=== PATIENT | male | born 1955 | race Caucasian/White ===

== ENCOUNTER 2024-10-09 23:57 | Emergency (ER) | payer MEDICARE, BC, SELFPAY ==
[2024-10-10] VITALS (9 sets, daily range): BP systolic 118–176; BP diastolic 78–106; PULSE 100–121; RESP 7–22; TEMP 36.8; O2SAT 93–98; BMI 27.9
--- NOTE | 2024-10-10 00:05 | XR_ITS ---
Examination: AP chest single view Technique: AP portable upright chest single view Exam date and time: November 09, 2024 0021 hrs. Comparison May 31, 2018 Indications: Onset chest pain today. Findings: Normal heart size No lobar pneumonia Possible 15 mm pulmonary nodule right lower lobe laterally Prominent osteopenia Impression: Recommend AP lordotic chest follow-up to exclude 15 mm pulmonary nodule right lower lobe
[2024-10-10] MEDS: FAMOTIDINE INJ 10 MG/ML VIAL 2 ML 40 MG IVP (00:10)
[2024-10-10] MEDS: LIDOCAINE VISCOUS 2% 15 ML UDC PO (00:10)
[2024-10-10] MEDS: MG HYD/AL HYD/SIME (Maalox Reg) SUSP 30 ML UDC PO (00:10)
[2024-10-10] MEDS: ONDANSETRON INJ 2 MG/ML INJ 2 ML 4 MG IV (00:12)
[2024-10-10 00:19] LABS: Basophils # (Auto) 0.1 Thou/mm3 (0.0-0.2); Basophils % (Auto) 1 % (0-2.5); Eosinophils # (Auto) 0.2 Thou/mm3 (0.0-0.5); Eosinophils % (Auto) 2 % (0-10); Hematocrit 38.6 % (41.0-53.0); Hemoglobin 13.4 g/dL (13.5-16.0); Immature Granulocytes % (Auto) 0 % (0-0); Immature Granulocytes Auto 0.04 Thou/mm3 (0.00-0.00); Lymphocytes # (Auto) 1.9 Thou/mm3 (1.0-4.8); Lymphocytes % (Auto) 20 % (10-50); Mean Corpuscular HGB Conc 34.7 g/dl (31.0-37.0); Mean Corpuscular Hemoglobin 32.6 pg (25.0-35.0); Mean Corpuscular Volume 94 fL (80-100); Monocytes # (Auto) 0.6 Thou/mm3 (0.0-0.8); Monocytes % (Auto) 6 % (0-12); Neutrophils # (Auto) 6.7 Thou/mm3 (1.8-7.7); Neutrophils % (Auto) 72 % (37-80); Nucleated Red Blood Cell % 0 /100 WBC (0); Platelet Count 239 Thou/mm3 (140-440); RDW Standard Deviation 46.9 fL (35.1-43.9); Red Blood Count 4.11 Miln/mm3 (4.50-5.90); White Blood Count 9.4 Thou/mm3 (3.8-10.6)
--- NOTE | 2024-10-10 00:40 | PD.EDCHEST ---
ED Chest Pain RME/HPI General Chief Complaint: Chest Pain Stated Complaint: CHEST PAIN Time Seen by Provider: 10/10/24 00:05 Source: patient and EMS Arrival date/time: 10/09/24 23:57 Mode of arrival: EMS Limitations: no limitations RME / HPI RME / HPI narrative: Dr. [facility] Main ED Evaluation: 69-year-old male with a history of hypertension, NIDDM2, gastric sleeve, chronic back pain (buprenorphine, patch, gabapentin, daily ibuprofen) who presents with epigastric ?burning sensation? with nausea starting around 10 PM this evening while he was seated watching television. He reports worsening of the nausea with deep breathing. He denies chest pressure or dieresis. Normal bowel movements without diarrhea or constipation. Related Data Home Medications ?Medication ?Instructions ?Recorded ?Confirmed albuterol sulfate 90 mcg/actuation 2 puff inhalation Q6HR PRN 02/19/17 07/12/23 aerosol inhaler (Proventil HFA) WHEEZING #0 inhalations docusate sodium 100 mg capsule 100 mg PO BID #0 caps 02/19/17 07/12/23 (Colace) gabapentin 300 mg capsule 300 mg PO BID #0 caps 02/19/17 07/12/23 meloxicam 15 mg tablet (Mobic) 15 mg PO HS #0 tabs 02/19/17 07/12/23 metoprolol tartrate 50 mg tablet 50 mg PO HS #0 tabs 02/19/17 07/12/23 montelukast 10 mg tablet 10 mg PO HS #0 tabs 02/19/17 07/12/23 (Singulair) omeprazole 20 mg capsule,delayed 40 mg PO QDAY ##0 02/19/17 07/12/23 release hydrocodone 10 mg-acetaminophen 1 tab PO Q6H PRN Pain 01/28/18 07/12/23 325 mg tablet (Twin Brooks) metformin 1,000 mg tablet 1,000 mg PO BID PRN Hyperglycemia 01/28/18 07/12/23 phentermine 37.5 mg capsule 37.5 mg PO QDAY 01/28/18 07/12/23 buprenorphine 15 mcg/hour weekly 15 mcg topical QWEEK 07/09/23 07/12/23 transdermal patch cyclobenzaprine 10 mg tablet 10 mg PO QDAY 07/09/23 07/12/23 famotidine 40 mg tablet 40 mg PO QDAY 07/09/23 07/12/23 semaglutide 0.25 mg or 0.5 mg (2 2 mg subcut QWEEK 07/09/23 07/12/23 mg/3 mL) subcutaneous pen injector (Ozempic) tiotropium 2.5 mcg-olodaterol 2.5 1 inh inhalation UD 07/09/23 07/12/23 mcg/actuation mist for inhalation (Stiolto Respimat) valsartan 160 mg tablet 320 mg PO QDAY 07/09/23 07/12/23 Previous Rx's ?Medication ?Instructions ?Recorded famotidine 20 mg tablet 20 mg PO BID #20 tabs 10/10/24 Allergies Allergy/AdvReac Type Severity Reaction Status Date / Time Penicillins AdvReac Abdominal Verified 07/12/23 11:52 Pain Review of Systems Review of Systems Systems Reviewed: All systems reviewed, normal except as documented Past Medical History Past Medical History NEUROLOGIC: Positive Neurological Disorders and Head Trauma (as a child); Negative Seizures CARDIAC: Positive Cardiac Disorders, Hypercholesterolemia, Edema (BLE) and Hypertension; Negative Congestive Heart Failure RESPIRATORY: Positive Asthma (use inhaler prn) and Sleep Apnea (Does not have Cpap); Negative Chronic Obstructive Pulmonary Disease (COPD) GASTROINTESTINAL: Positive Gastrointestinal Disorders, Diverticulitis, Ulcer (gastric) and Gastroesophageal Reflux Disease GENITOURINARY: Positive Genitourinary Disorders and Kidney Stones; Negative Renal Disease or Dialysis REPRODUCTIVE: Negative Breast Cancer MUSCULOSKELETAL: Positive Musculoskeletal Disorders (Left shoulder ligament damage post fall, Neuropathy), Arthritis (MILD) and Carpal Tunnel Syndrome (right hand) ENT: Positive Head Trauma (as a child); Negative Cataracts ENDOCRINE: Positive Endocrine Disorders and Diabetes Mellitus Type 2 (CONTROLLED WITH DIET); Negative Diabetes Mellitus Type 1 HEMATOLOGIC: Positive Blood Disorders and Anemia OTHER HISTORY: Negative Autoimmune Disease, Falls, Blood Transfusions, Anesthesia Reactions, Cancer or Breast Cancer Family History FAMILY HISTORY: Positive Family Cardiac Disorders (father had an abnormal aorta) and Family Cancer (Lung CA); Negative Family Psychiatric Problems, Family Respiratory Disorders, Family Gastrointestinal Problems or Family Anesthesia Reaction Surgical History SURGICAL: Positive Nose Surgery, Abdominal Surgery (Umbilical hernia repair x2 with mesh), Gastric Bypass Surgery and Joint Replacement (trigger finger release surgery 05/2023, CERVICAL FUSION); Negative Cardiac Surgery, Endocrine Surgery or Neurologic Surgery Social History SMOKING STATUS: Former smoker ED Exam Narrative Physical exam: GENERAL APPEARANCE: AxOx4, generally well-appearing, no acute distress. HEENT: NC, AT. MMM. EOMI, clear conjunctiva, oropharynx clear. NECK: Supple without lymphadenopathy. No stiffness or restricted ROM. HEART: Normal rate and regular rhythm, normal S1/S1, no m/r/g LUNGS: CTAB, moving air well. No crackles or wheezes are heard. ABDOMEN: Soft, moderate epigastric tenderness, nondistended with good bowel sounds heard. BACK: No midline C/T/L spine pain or deformity, No CVAT, no obvious deformity. EXTREMITIES: Without cyanosis, clubbing or edema. MUSCULOSKELETAL: FROM of all major joints, no chest tenderness NEUROLOGICAL: Grossly nonfocal. Alert and oriented, moving all 4 extremities. CN not formally tested but appear grossly intact. Observed to ambulate with normal gait. Skin: Warm and dry without any rash. General Limitations: Present no limitations Course Course Course Narrative: CXR is ordered for determining etiology of chest pain. 0445: Patient is now asymptomatic and pain-free after the GI cocktail. I discussed the CT findings, including the right lower lobe lung nodule and he says he is already aware of this and is being worked up with Dr. Loja. He will follow up with Dr. Loja about these findings. Reviewed all results, analysis, treatment plan and patient is amenable discharge. Strict return precautions reviewed and patient was discharged stable condition. Quality Measures none Orders Category Date Time Status CT Screening NOW Care 10/10/24 01:08 Active EKG (ED ONLY) *Do not use* NOW Care 10/10/24 00:[address] abdomen pelvis w con Stat Exams 10/10/24 01:08 Taken EKG (ED Only) Stat Exams 10/10/24 00:05 Ordered XR chest 1V Stat Exams 10/10/24 00:05 Taken CBC Stat Lab 10/10/24 00:05 Completed CMP [Comprehensive Metabolic Panel] Stat Lab 10/10/24 00:05 Completed Lipase Stat Lab 10/10/24 00:05 Completed Troponin I Stat Lab 10/10/24 00:05 Completed Troponin I Stat Lab 10/10/24 03:54 Completed Famotidine Inj [Pepcid Inj] Med 10/10/24 00:04 Discontinued 40 mg IVP X1 ONE Lidocaine 2% Viscous [Xylocaine 2% Viscous] Med 10/10/24 00:04 Discontinued 15 ml PO X1 ONE Ondansetron Inj [Zofran Inj] Med 10/10/24 00:04 Discontinued 4 mg IV X1 ONE mg Hyd/Al Hyd/Tiara Susp [Maalox Susp] Med 10/10/24 00:04 Discontinued 30 ml PO X1 ONE Vital Signs Vital signs: Vital Signs Temperature 98.3 F 10/10/24 00:01 Pulse Rate 105 H 10/10/24 00:01 Respiratory Rate 16 10/10/24 00:01 Blood Pressure 176/106 H 10/10/24 00:01 Pulse Oximetry (%) 97 10/10/24 00:01 Oxygen Delivery Method Room Air 10/10/24 00:01 Chest Pain MDM Narrative MDM Narrative:: Scribe Attestation: I, Sharad Melvin, am scribing for and in the presence of Dr. Webster. Provider Notation: Although this document has been carefully reviewed, there may still be some phonetic and other typographical errors. These errors are purely grammatical due to imperfections in the software program and should not be construed in any way to compromise the substance of the patient's medical care during this visit. Patient data External records reviewed:: [facility] previous records and EMS form Clinical information provided by:: patient and EMS Social determinants that could affect healthcare access:: none Patient has the following chronic illnesses:: hypertension, NIDDM2, gastric sleeve, chronic back pain How is presenting disease/condition affected by chronic disease/condition?: uneffected by Evaluation data The following diagnostics were reviewed and interpreted by me:: lab results and radiology exam(s) Lab and/or radiology exams considered but not ordered:: None Interpretation Summary: Chest x-ray, my interpretation, shows no acute cardio, pulmonary findings, no cardiomegaly, but does note cervical spine internal fixation CT scan of the abdomen and pelvis with intravenous and oral contrast (axial sections with sagittal and coronal reformats). October 10, 2024 at 0254 hours Clinical History: Epigastric pain Comparison: No prior study is available for comparison. Findings: Right lower lobe lung nodule, measuring 1.8 cm. The gallbladder, pancreas, spleen and adrenals are unremarkable. Small simple cysts in the bilateral kidneys. Fecal loading. Hypodense lesion in the right liver lobe measures 0.9 cm. No evidence of bowel obstruction. The appendix is within normal limits. There is no mesenteric or retroperitoneal adenopathy. The urinary bladder is unremarkable. There is no free fluid or free air. Degenerative changes of the imaged portions of the spine. No acute fractures. Mild anterolisthesis of L3. Chronic multilevel disc disease. Status post gastric sleeve surgery. Moderate size hiatal hernia. Impression: 1. Right lower lobe lung nodule suspicious for metastasis. 2. Hypodense lesion in the right liver lobe, consider correlation with MRI for characterization. 3. Fecal loading. 4. Moderate size hiatal hernia. Report Electronically Signed By: Alexander Noble 10/10/2024 4:04:57 AM [EST] Medications / Prescriptions Medications or Prescriptions considered but not ordered:: None Medication administrations:: Medication Administration History Discontinued Medications Al Hydrox/Mg Hydrox/Simethicone (Mg Hyd/Al Hyd/Tiara (Maalox Reg) Susp 30 Ml Udc) 30 ml PO X1 ONE Stop: 10/10/24 00:05 Last Admin: 10/10/24 00:10 Dose: 30 ml Documented By: KHANH Famotidine (Famotidine Inj 10 Mg/Ml Vial 2 Ml) 40 mg IVP X1 ONE Stop: 10/10/24 00:05 Last Admin: 10/10/24 00:10 Dose: 40 mg Documented By: KHANH Lidocaine HCl (Lidocaine Viscous 2% 15 Ml Udc) 15 ml PO X1 ONE Stop: 10/10/24 00:05 Last Admin: 10/10/24 00:10 Dose: 15 ml Documented By: KHANH Ondansetron HCl (Ondansetron Inj 2 Mg/Ml Inj 2 Ml) 4 mg IV X1 ONE; Protocol Stop: 10/10/24 00:05 Last Admin: 10/10/24 00:12 Dose: 4 mg Documented By: KHANH As above Consultations Consultation(s) initiated? (list below): No Diagnosis Most likely diagnosis given after review of the tests above:: Gastritis, Chest pain, GERD (gastroesophageal reflux disease), H/O gastric sleeve Admission Indicated Admission indicated?: not indicated Admission Request Was there a request for admission?: No Disposition Plan Disposition Plan: Discharge Discharge Attestation Discharge Attestation: The patient and all family members were given an opportunity to ask questions and understood the discharge instructions. Discharge instructions specifically effects, indications for sooner follow up or return to the emergency department, and the expected course of current diagnosis. Patient condition: Stable Discharge Plan Plan Patient Disposition: HOME (Self Care) Prescriptions/Referrals Prescriptions/Med Rec: New famotidine 20 mg tablet 20 mg PO BID Qty: 20 0RF No Action metoprolol tartrate 50 MG tablet 50 mg PO HS Qty: 0 montelukast [Singulair] 10 MG tablet 10 mg PO HS Qty: 0 meloxicam [Mobic] 15 MG tablet 15 mg PO HS Qty: 0 docusate sodium [Colace] 100 MG capsule 100 mg PO BID Qty: 0 gabapentin 300 MG capsule 300 mg PO BID Qty: 0 omeprazole 20 MG capsule,delayed release(DR/EC) 40 mg PO QDAY Qty: 0 albuterol sulfate [Proventil HFA] 6.7 GM HFA aerosol inhaler 2 puff Inhalation Q6HR PRN (Reason: WHEEZING) Qty: 0 hydrocodone-acetaminophen [Twin Brooks] 10-325 mg Tablet 1 tab PO Q6H PRN (Reason: Pain) Hold Instructions: Resume on 07/13/23. metformin 1,000 mg Tablet 1,000 mg PO BID PRN (Reason: Hyperglycemia) phentermine 37.5 mg Capsule 37.5 mg PO QDAY cyclobenzaprine 10 mg tablet 10 mg PO QDAY Hold Instructions: Resume on 07/13/23. famotidine 40 mg tablet 40 mg PO QDAY valsartan 160 mg tablet 320 mg PO QDAY buprenorphine 15 mcg/hour patch weekly 15 mcg TOPICAL QWEEK Patient Comments: APPLY 1 PATCH TO THE SKIN EVERY 7 DAYS FOR PAIN Rx Instructions: on mondays Stiolto Respimat 2.5-2.5 mcg/actuation mist 1 inh INHALATION UD Rx Instructions: USE INHALATION TREATMENT INSTRUCTED Ozempic 0.25 mg or 0.5 mg (2 mg/3 mL) pen injector 2 mg SUBCUT QWEEK Referrals: Cooper Clemens MD [Primary Care Provider] - In 1 week Problem List Clinical Impression: Gastritis, Chest pain, GERD (gastroesophageal reflux disease), H/O gastric sleeve Patient/Caregiver Discharge Instructions Education Materials: ED Chest Pain, Uncertain Cause, ED GERD (Adult), ED Gastritis (Adult) Additional Instructions: Follow-up with your primary care doctor in 3 to 5 days for recheck. You can return to the emergency department sooner if symptoms worsen or if you notice any new, concerning issues Print Language: Albanian Stand Alone Forms: Grace Award Info., Patient Portal Info Letter
[2024-10-10 00:41] LABS: Alanine Aminotransferase 17 U/L (10-49); Albumin, Serum 4.8 gm/dL (3.4-4.8); Albumin/Globulin Ratio 1.5 (1.2-2.2); Alkaline Phosphatase 103 U/L (46-116); Anion Gap 11 (7-16); Aspartate Amino Transferase 22 U/L (0-34); BUN/Creatinine Ratio 15 Ratio (12-20); Bilirubin,Total 0.6 mg/dL (0.3-1.2); Blood Urea Nitrogen 18 mg/dL (9-23); Calcium 10.7 mg/dL (8.3-10.6); Calcium (Corrected) 10.7 mg/dL (8.5-10.1); Chloride 104 mMol/L (98-107); Creatinine (Component) 1.2 mg/dL (0.6-1.3); Estimated Creatinine Clearance 64.2 mL/min (>60); Globulin 3.3 gm/dL (2.3-3.5); Glucose 144 mg/dL (74-106); Lipase 94 U/L (12-53); Osmolality,Calculated 284 (275-295); Potassium 3.6 mMol/L (3.4-5.1); Sodium 140 mMol/L (136-145); Total Protein 8.1 gm/dL (5.7-8.2); Troponin I < 0.020 ng/mL (0.0-0.045); eGFR > 60 See Note
--- NOTE | 2024-10-10 01:08 | XR_ITS ---
Examination: CT abdomen with intravenous contrast CT pelvis with intravenous contrast 2-D coronal reconstructions 2-D sagittal reconstructions Date and time of exam:October 10, 2024 0245 hrs. Indications: Epigastric pain today, history gastric sleeve 10 years ago, patient states chronic heartburn shortness of breath. CTDI: vol (mGy) 8.59 DLP: (mGycm) 601 Technique: Multiple axial sections of the abdomen and pelvis have been obtained. 64 slice high-resolution scanner used. 3 mm axial sections have been obtained, post intravenous injection 60 cc Isovue-370, 30 cc Gastrografin 2-D sagittal, coronal reconstructions obtained. Low dose protocols were performed. One or more of the following dose reduction techniques were used; automated exposure control, adjustment of the mA and/or KV according to patient size, use of iterative reconstruction technique. Findings: 17 mm pulmonary nodule right lower lobe, not seen on July 12, 2008 9 mm low-density lesion posterior right lobe of the liver No gallstones Spleen not enlarged No pancreatic or adrenal mass Mild bilateral renal parenchymal scar formation with small left renal cyst Abnormal contrast distended duodenum, proximal small bowel for instance axial image 127, measuring up to 3.8 cm Normal appendix No diverticulitis No significant prostatomegaly Advanced degenerative disc disease lower 3 lumbar levels Impression: 17 mm pulmonary nodule right lower lobe, recommend CT chest without contrast to exclude pulmonary nodular metastatic disease Recommend hepatobiliary sonography to assess 9 mm low-density lesion posterior right lobe the liver Abnormal contrast distended duodenum and proximal small bowel, consider ileus, enteritis, clinical correlation advised Normal appendix
--- NOTE | 2024-10-10 04:05 | PRELIM_ITS ---
CT scan of the abdomen and pelvis with intravenous and oral contrast (axial sections with sagittal an d coronal reformats). October 10, 2024 at 0254 hoursClinical History: Epigastric painComparison: No prior study is available for comparison.Findings:Right lower lobe lung nodule, measuring 1.8 cm.The g allbladder, pancreas, spleen and adrenals are unremarkable.Small simple cysts in the bilateral kidney s.Fecal loading.Hypodense lesion in the right liver lobe measures 0.9 cm.No evidence of bowel obstruc tion. The appendix is within normal limits.There is no mesenteric or retroperitoneal adenopathy.The u rinary bladder is unremarkable. There is no free fluid or free air.Degenerative changes of the imaged portions of the spine. No acute fractures. Mild anterolisthesis of L3. Chronic multilevel disc disea se.Status post gastric sleeve surgery.Moderate size hiatal hernia.Impression:1. Right lower lobe lung nodule suspicious for metastasis.2. Hypodense lesion in the right liver lobe, consider correlation w ith MRI for characterization.3. Fecal loading.4. Moderate size hiatal hernia. Report Electronically S igned By: Alexander Noble 10/10/2024 4:04:57 AM [EST]
[2024-10-10 04:20] LABS: Troponin I < 0.020 ng/mL (0.0-0.045)
== END 2024-10-10 04:51 | disposition home or self-care (01) ==
PROVIDERS: Emergency Provider Emergency Medicine; PCP Specialist
DX: K29.70 Gastritis, unspecified, without bleeding (principal); K21.9 Gastro-esophageal reflux disease without esophagitis
CPT/HCPCS: 36415; 71045; 74177; 80053; 83690; 84484; 85025; 93005; 96374; 96375; 99285; A4649; J2405; J3490; Q9963; Q9967; A9270

== ENCOUNTER 2024-12-02 14:40 | Emergency (ER) | payer MEDICARE, SELFPAY ==
[2024-12-02 14:42] VITALS: BMI 28.0
[2024-12-02 15:29] VITALS: BP 99/64; PULSE 111; RESP 20; TEMP 37.2; O2SAT 95
--- NOTE | 2024-12-02 17:16 | EKG_ITS ---
[facility] Test Date: 2024-12-02 Pat Name: JASMIN BARCLAY Department: Room: - Gender: Male [employer]: : 1955 Requested By: Hali Arriola Order Number: [id number] Reading MD: Hali Arriola Measurements Intervals [place] Rate: 117 P: 92 TX: 147 QRS: -71 QRSD: 94 T: 73 QT: 296 QTc: 413 Interpretive Statements SINUS TACHYCARDIA WITH OCCASIONAL SUPRAVENTRICULAR PREMATURE COMPLEXES PATTERN CONSISTENT WITH PULMONARY DISEASE INCOMPLETE RIGHT BUNDLE BRANCH BLOCK [90+ ms QRS DURATION, TERMINAL R IN V1/V2, 40+ ms S IN I/aVL/V4/V5/V6] LEFT ANTERIOR FASCICULAR BLOCK [QRS AXIS <= -45, QR IN I, RS IN II] No previous ECG available for comparison /store/S0/[id number]/[id number].pdf
--- NOTE | 2024-12-02 17:16 | XR_ITS ---
Examination: PA lateral chest 2 views Technique: Upright PA lateral chest 2 views Exam date and time: December 02, 2024 at 1734 hrs. Indications: Shortness of breath today. Findings: Normal heart size Lungs are clear. The osseous structures are intact Impression: No pneumonia or pulmonary edema
--- NOTE | 2024-12-02 17:17 | EDRME_ITS ---
Rapid Medical Screening Exam [facility] Arrival date/time: 12/02/24 14:40 This is a 69-year-old male with complaints of abdominal pain for the past week. Patient also reports cold sweats at night. Patient also complains of shortness of breath but denies chest pain. Patient states that abdominal pain radiates to his back sometimes. Patient has a history of high blood pressure, diabetes. Patient denies fever, nausea, vomiting, diarrhea. I have greeted and performed a focused initial assessment of this patient. Initial appropriate labs ordered at this time. A comprehensive ED assessment and evaluation of the patient and analysis of all test and completion of medical decision making process will be conducted by additional ED provider. Chief Complaint: Abdominal Pain Time Seen by Provider: 12/02/24 17:01 Vital signs: Vital Signs Temperature 99.0 F 12/02/24 15:29 Pulse Rate 111 H 12/02/24 15:29 Respiratory Rate 20 12/02/24 15:29 Blood Pressure 99/64 12/02/24 15:29 Pulse Oximetry (%) 95 12/02/24 15:29 Oxygen Delivery Method Room Air 12/02/24 15:29
[2024-12-02 18:01] LABS: Collection Type, Urine Voided; Squamous Epithelial Cell,Urine 0 /hpf (0-5)
[2024-12-02 18:12] LABS: Basophils # (Auto) 0.1 Thou/mm3 (0.0-0.2); Basophils % (Auto) 0 % (0-2.5); Eosinophils # (Auto) 0.1 Thou/mm3 (0.0-0.5); Eosinophils % (Auto) 1 % (0-10); Hematocrit 35.8 % (41.0-53.0); Hemoglobin 11.7 g/dL (13.5-16.0); Immature Granulocytes % (Auto) 1 % (0-0); Lymphocytes # (Auto) 2.8 Thou/mm3 (1.0-4.8); Lymphocytes % (Auto) 21 % (10-50); Mean Corpuscular HGB Conc 32.7 g/dl (31.0-37.0); Mean Corpuscular Hemoglobin 31.6 pg (25.0-35.0); Mean Corpuscular Volume 97 fL (80-100); Monocytes % (Auto) 8 % (0-12); Neutrophils # (Auto) 9.3 Thou/mm3 (1.8-7.7); Neutrophils % (Auto) 69 % (37-80); Nucleated Red Blood Cell % 0 /100 WBC (0); Platelet Count 422 Thou/mm3 (140-440); RDW Standard Deviation 46.3 fL (35.1-43.9); White Blood Count 13.4 Thou/mm3 (3.8-10.6)
[2024-12-02 18:14] LABS: Bilirubin,Urine Negative (Negative); Blood,Urine Negative (Negative); Clarity,Urine Clear (Clear/Hazy); Color,Urine Lt-Yellow (Lt Yel-Yel); Culture Indicated,Urine Not Indicated; Glucose, Urine Negative (Negative); Hyaline Casts,Urine < 1 /hpf (0-1); Ketones,Urine Negative (Negative); Leukocyte Esterase,Urine Negative (Negative); Nitrite,Urine Negative (Negative); PH,Urine 6.5 (5.0-7.0); Protein,Urine Negative (Neg - Trace); RBC,Urine 2 /hpf (0-3); Specific Gravity,Urine 1.013 (1.001-1.035); Urobilinogen,Urine Negative mg/dL (0.0-1.0); WBC,Urine < 1 /hpf (0-5)
[2024-12-02 18:33] LABS: B-Type Natriuretic Peptide 68 pg/mL (0-100)
[2024-12-02 18:41] LABS: Alanine Aminotransferase 8 U/L (10-49); Albumin, Serum 4.6 gm/dL (3.4-4.8); Albumin/Globulin Ratio 1.1 (1.2-2.2); Alkaline Phosphatase 128 U/L (46-116); Anion Gap 9 (7-16); Aspartate Amino Transferase < 10 U/L (0-34); BUN/Creatinine Ratio 16 Ratio (12-20); Bilirubin,Total 0.4 mg/dL (0.3-1.2); Blood Urea Nitrogen 16 mg/dL (9-23); Calcium 10.2 mg/dL (8.3-10.6); Calcium (Corrected) 10.2 mg/dL (8.5-10.1); Carbon Dioxide 27.1 mMol/L (20.0-31.0); Chloride 100 mMol/L (98-107); Estimated Creatinine Clearance 74.8 mL/min (>60); Globulin 4.3 gm/dL (2.3-3.5); Glucose 115 mg/dL (74-106); Lipase 32 U/L (12-53); Osmolality,Calculated 274 (275-295); Potassium 4.7 mMol/L (3.4-5.1); Sodium 136 mMol/L (136-145); Total Protein 8.9 gm/dL (5.7-8.2); Troponin I < 0.020 ng/mL (0.0-0.045); eGFR > 60 See Note
--- NOTE | 2024-12-02 19:22 | XR_ITS ---
Examination: CT abdomen with intravenous contrast CT pelvis with intravenous contrast 2-D coronal reconstructions 2-D sagittal reconstructions Date and time of exam:December 02, 2024 2143 hrs. Comparison October 10, 2024 Indications: Right-sided abdominal pain beginning one week ago. CTDI: vol (mGy) 10.4 DLP: (mGycm) 640 Technique: Multiple axial sections of the abdomen and pelvis have been obtained. 64 slice high-resolution scanner used. 3 mm axial sections have been obtained, post intravenous injection 60 cc Isovue-370 2-D sagittal, coronal reconstructions obtained. Low dose protocols were performed. One or more of the following dose reduction techniques were used; automated exposure control, adjustment of the mA and/or KV according to patient size, use of iterative reconstruction technique. Findings: 13 mm pulmonary nodule right lower lobe Small liver cysts Distended gallbladder Gastric sutures No splenic or pancreatic mass Normal adrenal glands No hydronephrosis or renal calculi Normal appendix Abundant stool in the transverse colon and rectosigmoid No obstruction No nonspecific colitis or enteritis pattern Urinary bladder intact Prostate calcifications transverse prostate dimension 3.8 cm Prominent osteopenia Advanced degenerative disc disease L3-L4, L4-L5 Impression: Distended gallbladder, recommend gallbladder sonography follow-up No renal or ureteral calculi, no hydronephrosis Normal appendix Fecal loading, no obstruction Negative for nonspecific colitis or enteritis pattern
[2024-12-02 19:36] VITALS: BP 109/78; PULSE 113; RESP 19; TEMP 37; O2SAT 97
--- NOTE | 2024-12-02 22:30 | XR_ITS ---
Examination: Abdomen sonogram, Limited Date and time of exam: December 03, 2024 0114 hrs. Indications: Onset generalized abdominal pain beginning one week ago Technique: Real-time sales scale transabdominal sonographic images of the upper abdomen obtained. Findings: Gallbladder sludge No gallstones Gallbladder wall 0.5 cm Common bile duct 0.7 cm no stones Pancreas obscured by bowel gas Liver 14 cm no liver lesions Normal hepatopedal portal venous oh Patent IVC Impression: Gallbladder sludge Thickened gallbladder wall 0.5 cm, recommend HIDA scan or MRCP follow-up to exclude cholecystitis
--- NOTE | 2024-12-03 03:18 | PRELIM_ITS ---
Right upper quadrant abdominal ultrasound. December 03, 2024 0141 hours Clinical history: 69-year-old with abdominal pain, distended gallbladder on CT Comparison: Reference is made to the prior [facility] CT report dated October 10, 2024Findings:The liver measures 14 cm and demonstrates heterogeneous echotexture. There is a starry teri appearance of the liver. No intrahepatic biliary ductal dilatatio n. The main portal vein is patent and demonstrates hepatopetal flow. The gallbladder is distended breanne suring 9 x 5.1 x 4.8 cm with thickening of the gallbladder wall measuring 5.3 mm. There are low level internal echoes which may represent sludge. No gallbladder calculus or pericholecystic fluid is demo nstrated. Sonographic Whitley sign is negative as per the technologist's note. The common bile duct me asures 6.9 mm. The pancreas is obscured by overlying bowel gas and not visualized. The right kidney m easures 14 cm and is unremarkable. There is no hydronephrosis and the corticomedullary differentiatio n is maintained. The inferior vena cava is unremarkable to the extent visualized. Impression:Heteroge neously increased hepatic echotexture, which may be due to fatty infiltration versus hepatic parenchy mal disease. Recommend clinical/laboratory correlation. Distended gallbladder. Thickened gallbladder wall, which may be due to underlying liver pathology. However,the possibility of acute cholecystitis cannot be excluded. Recommend further evaluation with suggest follow-up with HIDA scan, if clinically indicated. Report Electronically Signed By: Iris Hinton 12/03/2024 3:17:16 AM [EST]
[2024-12-03 04:40] VITALS: BP 133/75; PULSE 97; RESP 16; TEMP 36.6; O2SAT 98
--- NOTE | 2024-12-03 05:14 | PD.EDABDPN ---
ED Abdominal Pain RME/HPI General Chief Complaint: Abdominal Pain Stated complaint: ABD PAIN Time seen by provider: 12/02/24 17:01 Arrival date/time: 12/02/24 14:40 Source: patient Mode of arrival: ambulatory Limitations: no limitations RME / HPI RME / HPI narrative: --- DR. MOORE MAIN ED EVALUATION: 69-year-old male with complaints of abdominal pain for the past week. Patient also reports chills at night, and shortness of breath. Denies chest pain. He notes the abdominal pain radiates to his back. No fever, nausea, vomiting, or diarrhea. Patient reports he thought he had bowel movements, but it did not improve. Patient took lactulose, Dulcolax with no improvement. Pain currently 7 out of 10 History includes high blood pressure, and diabetes. Related Data Home Medications ?Medication ?Instructions ?Recorded ?Confirmed albuterol sulfate 90 mcg/actuation 2 puff inhalation Q6HR PRN 02/19/17 07/12/23 aerosol inhaler (Proventil HFA) WHEEZING #0 inhalations docusate sodium 100 mg capsule 100 mg PO BID #0 caps 02/19/17 07/12/23 (Colace) gabapentin 300 mg capsule 300 mg PO BID #0 caps 02/19/17 07/12/23 meloxicam 15 mg tablet (Mobic) 15 mg PO HS #0 tabs 02/19/17 07/12/23 metoprolol tartrate 50 mg tablet 50 mg PO HS #0 tabs 02/19/17 07/12/23 montelukast 10 mg tablet 10 mg PO HS #0 tabs 02/19/17 07/12/23 (Singulair) omeprazole 20 mg capsule,delayed 40 mg PO QDAY ##0 02/19/17 07/12/23 release hydrocodone 10 mg-acetaminophen 1 tab PO Q6H PRN Pain 01/28/18 07/12/23 325 mg tablet ([place]) metformin 1,000 mg tablet 1,000 mg PO BID PRN Hyperglycemia 01/28/18 07/12/23 phentermine 37.5 mg capsule 37.5 mg PO QDAY 01/28/18 07/12/23 buprenorphine 15 mcg/hour weekly 15 mcg topical QWEEK 07/09/23 07/12/23 transdermal patch cyclobenzaprine 10 mg tablet 10 mg PO QDAY 07/09/23 07/12/23 famotidine 40 mg tablet 40 mg PO QDAY 07/09/23 07/12/23 semaglutide 0.25 mg or 0.5 mg (2 2 mg subcut QWEEK 07/09/23 07/12/23 mg/3 mL) subcutaneous pen injector (Ozempic) tiotropium 2.5 mcg-olodaterol 2.5 1 inh inhalation UD 07/09/23 07/12/23 mcg/actuation mist for inhalation (Stiolto Respimat) valsartan 160 mg tablet 320 mg PO QDAY 07/09/23 07/12/23 Previous Rx's ?Medication ?Instructions ?Recorded famotidine 20 mg tablet 20 mg PO BID #20 tabs 10/10/24 Allergies Allergy/AdvReac Type Severity Reaction Status Date / Time Penicillins AdvReac Abdominal Verified 12/02/24 14:42 Pain Review of Systems Review of Systems Systems Reviewed: All systems reviewed, normal except as documented Past Medical History Past Medical History NEUROLOGIC: Positive Neurological Disorders and Head Trauma (as a child); Negative Seizures CARDIAC: Positive Hypercholesterolemia, Edema (BLE) and Hypertension; Negative Cardiac Disorders or Congestive Heart Failure RESPIRATORY: Positive Asthma and Sleep Apnea (Does not have Cpap); Negative Chronic Obstructive Pulmonary Disease (COPD) GASTROINTESTINAL: Positive Gastrointestinal Disorders, Diverticulitis, Ulcer (gastric) and Gastroesophageal Reflux Disease GENITOURINARY: Positive Genitourinary Disorders and Kidney Stones; Negative Renal Disease or Dialysis REPRODUCTIVE: Negative Breast Cancer MUSCULOSKELETAL: Positive Musculoskeletal Disorders (Left shoulder ligament damage post fall, Neuropathy), Arthritis (MILD) and Carpal Tunnel Syndrome (right hand) ENT: Positive Head Trauma (as a child); Negative Cataracts ENDOCRINE: Positive Endocrine Disorders; Negative Diabetes Mellitus Type 1 or Diabetes Mellitus Type 2 HEMATOLOGIC: Positive Blood Disorders and Anemia; Negative Sickle Cell Disease OTHER HISTORY: Negative Autoimmune Disease, Falls, Blood Transfusions, Anesthesia Reactions, Cancer or Breast Cancer Family History FAMILY HISTORY: Positive Family Cardiac Disorders (father had an abnormal aorta) and Family Cancer (Lung CA); Negative Family Psychiatric Problems, Family Respiratory Disorders, Family Gastrointestinal Problems or Family Anesthesia Reaction Surgical History SURGICAL: Positive Nose Surgery, Abdominal Surgery (Umbilical hernia repair x2 with mesh), Gastric Bypass Surgery and Joint Replacement (trigger finger release surgery 05/2023, CERVICAL FUSION); Negative Cardiac Surgery, Endocrine Surgery or Neurologic Surgery Social History SMOKING STATUS: Former smoker ED Exam General Limitations: Present no limitations General appearance: Present alert and in no apparent distress Head Head exam: Present atraumatic, normocephalic and normal inspection Eye Eye exam: Present normal appearance, PERRL and EOMI ENT ENT exam: Present normal exam, normal oropharynx, TM's normal bilaterally and normal external ear exam Neck Neck exam: Present normal inspection and full ROM Chest Chest inspection: Present normal inspection and symmetric chest wall rise Respiratory Respiratory exam: Present normal lung sounds bilaterally Cardiovascular Cardiovascular exam: Present regular rate, normal rhythm and normal heart sounds Abdominal Exam Abdominal exam: Present normal bowel sounds Extremities Exam Extremities exam: Present normal inspection and full ROM Back Exam Back exam: Present normal inspection and full ROM Neurological Exam Neurological exam: Present alert, oriented X3 and CN II-XII intact Psychiatric Psychiatric exam: Present normal affect and normal mood; Absent depressed Skin Skin exam: Present warm, dry, intact and normal color Course Course Course Narrative: Patient continues to have pain [address] scan with possible constipation however the patient feels that is not secondary to constipation. He is clinically dehydrated with decree skin turgor. Differential includes possible muscle spasm versus constipation however with the pain increased and the patient had been here for 14 hours and not been seen by her prior provider prior to previous to me in which I saw him at the 11-hour naman at this time I want to repeat labs, gave him hydration, consider lactate to make sure that this is not pain out of proportion to exam and consider other causes for his pain. Quality Measures none Orders Category Date Time Status CT Screening NOW Care 12/02/24 19:22 Active EKG (ED ONLY) *Do not use* NOW Care 12/02/24 17:[address] abdomen pelvis w con Stat Exams 12/02/24 19:22 Completed EKG (ED Only) Stat Exams 12/02/24 17:16 Draft US abdomen limited Stat Exams 12/02/24 22:30 Taken XR chest 2V Stat Exams 12/02/24 17:16 Completed BNP [B-Type Natriuretic Peptide] Stat Lab 12/02/24 17:34 Completed CBC Stat Lab 12/02/24 17:34 Completed CBC Stat Lab 12/03/24 05:33 Ordered Comprehensive Metabolic Panel Stat Lab 12/02/24 17:34 Completed Comprehensive Metabolic Panel Stat Lab 12/03/24 05:33 Ordered Lactate (Lactic Acid) Stat Lab 12/03/24 05:33 Ordered Lipase Stat Lab 12/02/24 17:34 Completed Procalcitonin Stat Lab 12/03/24 05:33 Ordered Sed Rate (ESR) Stat Lab 12/03/24 05:33 Ordered Troponin I Stat Lab 12/02/24 17:34 Completed Urinalysis, C/S if Indicated Stat Lab 12/02/24 17:32 Completed Diazepam [Valium] Med 12/03/24 05:38 Discontinued 2.5 mg PO X1 ONE Sodium Chloride 0.9% 1000 ml [Ns] 1,000 ml Med 12/03/24 05:33 Active IV 999 mls/hr Vital Signs Vital signs: Vital Signs Temperature 99.0 F 12/02/24 15:29 Pulse Rate 111 H 12/02/24 15:29 Respiratory Rate 20 12/02/24 15:29 Blood Pressure 99/64 12/02/24 15:29 Pulse Oximetry (%) 95 12/02/24 15:29 Oxygen Delivery Method Room Air 12/02/24 15:29 Abdominal Pain MDM MDM Narrative MDM Narrative:: 0600: Care signed out to [facility] dayshift provider. Past medical, surgical, social and family history reviewed. Vitals and home medications reviewed. Results and treatment plan discussed. They will assume the care of the patient at this time and will follow the patient, pending CT and final disposition. ? Scribe Attestation: ISharad, am scribing for and in the presence of Dr. Mortensen. Provider Notation: Although this document has been carefully reviewed, there may still be some phonetic and other typographical errors. These errors are purely grammatical due to imperfections in the software program and should not be construed in any way to compromise the substance of the patient's medical care during this visit. Patient data External records reviewed:: [facility] previous records Clinical information provided by:: patient Social determinants that could affect healthcare access:: none Patient has the following chronic illnesses:: HTN, DM2 How is presenting disease/condition affected by chronic disease/condition?: uneffected by Evaluation data The following diagnostics were reviewed and interpreted by me:: lab results and radiology exam(s) Lab and/or radiology exams considered but not ordered:: None Interpretation Summary: Right upper quadrant abdominal ultrasound. December 03, 2024 0141 hours Clinical history: 69-year-old with abdominal pain, distended gallbladder on CT Comparison: Reference is made to the prior preliminary CT report dated October 10, 2024 Findings: The liver measures 14 cm and demonstrates heterogeneous echotexture. There is a starry teri appearance of the liver. No intrahepatic biliary ductal dilatation. The main portal vein is patent and demonstrates hepatopetal flow. The gallbladder is distended measuring 9 x 5.1 x 4.8 cm with thickening of the gallbladder wall measuring 5.3 mm. There are low level internal echoes which may represent sludge. No gallbladder calculus or pericholecystic fluid is demonstrated. Sonographic Whitley sign is negative as per the technologist's note. The common bile duct measures 6.9 mm. The pancreas is obscured by overlying bowel gas and not visualized. The right kidney measures 14 cm and is unremarkable. There is no hydronephrosis and the corticomedullary differentiation is maintained. The inferior vena cava is unremarkable to the extent visualized. Impression: Heterogeneously increased hepatic echotexture, which may be due to fatty infiltration versus hepatic parenchymal disease. Recommend clinical/laboratory correlation. Distended gallbladder. Thickened gallbladder wall, which may be due to underlying liver pathology. However, the possibility of acute cholecystitis cannot be excluded. Recommend further evaluation with suggest follow-up with HIDA scan, if clinically indicated. Report Electronically Signed By: Iris Hinton 12/03/2024 3:17:16 AM [EST] Medications / Prescriptions Medications or Prescriptions considered but not ordered:: None Medication administrations:: Medication Administration History Sodium Chloride (Ns) 1,000 mls @ 999 mls/hr IV .Q1H1M ONE Stop: 12/03/24 06:33 Discontinued Medications Diazepam (Diazepam 5 Mg Tablet) 2.5 mg PO X1 ONE Stop: 12/03/24 05:39 As above, if any Consultations Consultation(s) initiated? (list below): No Diagnosis Differential diagnosis abdominal pain: abdominal pain, calculus of kidney, constipation and gastroenteritis (Acalculous acute cholecystitis, gallbladder distention) Most likely diagnosis given after review of the tests above:: See clinical impression below Admission Indicated Admission indicated?: not indicated Explain why admission is indicated or not indicated:: Patient will be signed out to the next provider. Admission Request Was there a request for admission?: No Disposition Plan Disposition Plan: other (specify) (sign-out pending reevaluation, IV fluids, lactate, and reevaluation for possible admission for abdominal pain.) Discharge Plan Plan Disposition Comment: Stable at signout with Prescriptions/Referrals Prescriptions/Med Rec: No Action metoprolol tartrate 50 MG tablet 50 mg PO HS Qty: 0 montelukast [Singulair] 10 MG tablet 10 mg PO HS Qty: 0 meloxicam [Mobic] 15 MG tablet 15 mg PO HS Qty: 0 docusate sodium [Colace] 100 MG capsule 100 mg PO BID Qty: 0 gabapentin 300 MG capsule 300 mg PO BID Qty: 0 omeprazole 20 MG capsule,delayed release(DR/EC) 40 mg PO QDAY Qty: 0 albuterol sulfate [Proventil HFA] 6.7 GM HFA aerosol inhaler 2 puff Inhalation Q6HR PRN (Reason: WHEEZING) Qty: 0 hydrocodone-acetaminophen [[place]] 10-325 mg Tablet 1 tab PO Q6H PRN (Reason: Pain) Hold Instructions: Resume on 07/13/23. metformin 1,000 mg Tablet 1,000 mg PO BID PRN (Reason: Hyperglycemia) phentermine 37.5 mg Capsule 37.5 mg PO QDAY cyclobenzaprine 10 mg tablet 10 mg PO QDAY Hold Instructions: Resume on 07/13/23. famotidine 40 mg tablet 40 mg PO QDAY valsartan 160 mg tablet 320 mg PO QDAY buprenorphine 15 mcg/hour patch weekly 15 mcg TOPICAL QWEEK Patient Comments: APPLY 1 PATCH TO THE SKIN EVERY 7 DAYS FOR PAIN Rx Instructions: on mondays Stiolto Respimat 2.5-2.5 mcg/actuation mist 1 inh INHALATION UD Rx Instructions: USE INHALATION TREATMENT INSTRUCTED Ozempic 0.25 mg or 0.5 mg (2 mg/3 mL) pen injector 2 mg SUBCUT QWEEK famotidine 20 mg tablet 20 mg PO BID Qty: 20 0RF Referrals: Cooper Clemens MD [Primary Care Provider] - In 1 week Problem List Clinical Impression: Abdominal pain Patient/Caregiver Discharge Instructions Print Language: Burundian
[2024-12-03] MEDS: DIAZEPAM 5 MG TABLET 2.5 MG PO (05:53)
[2024-12-03] MEDS: SODIUM CHLORIDE 0.9% 1000 ML 1,000 ML 999 ML IV (05:53)
[2024-12-03 06:11] LABS: Basophils # (Auto) 0.1 Thou/mm3 (0.0-0.2); Basophils % (Auto) 1 % (0-2.5); Eosinophils # (Auto) 0.1 Thou/mm3 (0.0-0.5); Eosinophils % (Auto) 1 % (0-10); Hematocrit 30.8 % (41.0-53.0); Hemoglobin 10.5 g/dL (13.5-16.0); Immature Granulocytes % (Auto) 1 % (0-0); Immature Granulocytes Auto 0.08 Thou/mm3 (0.00-0.00); Lymphocytes # (Auto) 2.3 Thou/mm3 (1.0-4.8); Lymphocytes % (Auto) 25 % (10-50); Mean Corpuscular HGB Conc 34.1 g/dl (31.0-37.0); Mean Corpuscular Hemoglobin 32.2 pg (25.0-35.0); Mean Corpuscular Volume 95 fL (80-100); Monocytes # (Auto) 0.6 Thou/mm3 (0.0-0.8); Monocytes % (Auto) 6 % (0-12); Neutrophils # (Auto) 6.2 Thou/mm3 (1.8-7.7); Neutrophils % (Auto) 67 % (37-80); Nucleated Red Blood Cell % 0 /100 WBC (0); Platelet Count 345 Thou/mm3 (140-440); RDW Standard Deviation 45.2 fL (35.1-43.9); Red Blood Count 3.26 Miln/mm3 (4.50-5.90); White Blood Count 9.3 Thou/mm3 (3.8-10.6)
[2024-12-03 06:30] LABS: Sed Rate (ESR) 72 mm/hr (0-20)
--- NOTE | 2024-12-03 06:32 | EDNOTE_ITS ---
Emergency Room Addendum <Briana Vidal - Last Filed: 12/03/24 10:28> Addendum Narrative: 0600: Care assumed from Dr. Molina, the previous shift emergency physician. Past medical, surgical, social and family history reviewed. Vitals and home medications reviewed. I will assume the care of the patient at this time. Please refer to the emergency department record for history and examination from initial visit.? Physical exam by me shows patient under no acute distress at this time. <Maurizio Aguilar MD - Last Filed: 12/03/24 10:45> Addendum Narrative: 0600: Care assumed from Dr. Molina, the previous shift emergency physician. Past medical, surgical, social and family history reviewed. Vitals and home medications reviewed. I will assume the care of the patient at this time. The patient was signed out to me from Dr. Polk at 6:00 this morning pending repeated CBC and CMP. Repeat his CBC is negative. Repeat his CMP is negative. Other results including CT that showing constipation. Ultrasound gallbladder showing gallbladder sludge. Chest x-ray interpreted by me: Clear lungs. Heart normal. Mediastinum normal. Normal bones. No pneumothorax. No CHF. There appeared to be a small nodule in the right lower lateral lung base. It has been there on the CT chest in 2022 at least. Please refer to the emergency department record for history and examination from initial visit.? Physical exam by me shows patient under no acute distress at this time. Repeated abdominal exam is benign soft nontender nondistended no rebound or guarding. No surgical abdomen. And the patient does want to go home. He is taking [place] chronically for chronic back pain. Diagnosis: Abdominal pain Constipation. Gallbladder sludge Condition: Stable and improved to go home DC instruction: Liquid diet for 24 hours. Milk magnesia for constipation. See your doctor for recheck in 72 hours. Return the nearest emergency department if condition worsens or if new symptoms develop especially fever. Of note, there is a small nodule in the right lung base please follow-up with your medical doctor.
[2024-12-03 06:52] LABS: Alanine Aminotransferase < 7 U/L (10-49); Albumin, Serum 4.1 gm/dL (3.4-4.8); Albumin/Globulin Ratio 1.1 (1.2-2.2); Alkaline Phosphatase 110 U/L (46-116); Anion Gap 9 (7-16); Aspartate Amino Transferase 13 U/L (0-34); BUN/Creatinine Ratio 18 Ratio (12-20); Bilirubin,Total 0.4 mg/dL (0.3-1.2); Blood Urea Nitrogen 18 mg/dL (9-23); Calcium 9.7 mg/dL (8.3-10.6); Calcium (Corrected) 9.7 mg/dL (8.5-10.1); Carbon Dioxide 23.8 mMol/L (20.0-31.0); Chloride 102 mMol/L (98-107); Estimated Creatinine Clearance 74.8 mL/min (>60); Globulin 3.9 gm/dL (2.3-3.5); Glucose 107 mg/dL (74-106); Osmolality,Calculated 272 (275-295); Potassium 4.2 mMol/L (3.4-5.1); Procalcitonin 0.18 ng/ml (0.0-0.49); Sodium 135 mMol/L (136-145); eGFR > 60 See Note
[2024-12-03 06:54] VITALS: BP 103/77; PULSE 82; RESP 17; O2SAT 94
[2024-12-03 08:19] VITALS: BP 137/68; PULSE 89; RESP 17; TEMP 36.4; O2SAT 99
[2024-12-03 10:00] VITALS: BP 144/74; PULSE 88; RESP 16; TEMP 36.6; O2SAT 95
== END 2024-12-03 10:50 | disposition home or self-care (01) ==
PROVIDERS: Emergency Medicine; Nurse Practitioner Family; Emergency Provider Emergency Medicine; PCP Specialist
DX: K59.00 Constipation, unspecified (principal); K82.8 Other specified diseases of gallbladder
CPT/HCPCS: 36415; 71046; 74177; 76705; 80053; 81001; 83605; 83690; 83880; 84145; 84484; 85025; 85652; 93005; 96360; 99285; A4649; J7030; Q9967; A9270

== ENCOUNTER 2024-12-05 03:37 | Emergency (ER) | payer MEDICARE, BC, SELFPAY ==
[2024-12-05] VITALS (10 sets, daily range): BP systolic 137–170; BP diastolic 77–97; PULSE 87–114; RESP 16–21; TEMP 36.3–39; O2SAT 92–100; BMI 28.8; BMI 28.0
--- NOTE | 2024-12-05 | XR_ITS ---
Examination: MRI lumbar spine, without intravenous contrast. MRI lumbar spine , with intravenous contrast. Exam date and time: December 05, 2024 1330 hours INDICATIONS: Diffuse abdominal pain nausea vomiting constipation with fever and low back pain this week, CT scan lumbar spine December 05, 2024 is L4-L5 Technique: Multiple axial, sagittal and coronal images of the lumbar spine have been obtained with the Siemens high-resolution 1.5 Emily MRI scanner. Images obtained included T2 weighted fat suppressed sagittal sections, TR 3500, TE 46, T2 weighted coronal fat suppressed images, TR 3050, TE 84, T2-weighted transverse fat suppressed images, TR 30-60, TE 63, proton density transverse images, TR 4720, TE 46, and T1 weighted coronal images, TR 560, TE 13. Axial, sagittal and coronal images are obtained post intravenous injection 60 cc gadolinium. Findings: Grade 1 anterolisthesis L4 on L5 Transitional S1 vertebral body Advanced disc narrowing L4-L5, L5-S1 Reactive bony endplate change L4-L5 No lumbar fracture Postcontrast images demonstrate no osteoarthritis or discitis pattern L5-S1 partially extruded 7 mm central right paracentral disc displacing the right S1 nerve root The disc bulges extends to the foraminal regions with mild bilateral L5 ganglionic compression L4-L5 moderate to severe overall spinal stenosis, 6 mm left 7 mm right foraminal disc bulges with severe right L4 ganglionic compression More cephalad levels unremarkable IMPRESSION: Advanced degenerative disc disease L4-L5, L5-S1 L5-S1 partially extruded 7 mm central right paracentral disc bulge displacing the right S1 nerve root, mild bilateral L5 ganglionic compression L4-L5 moderate to severe overall spinal stenosis, 6 mm left 7 mm right foraminal disc bulges with severe right L4 ganglionic compression
--- NOTE | 2024-12-05 04:27 | XR_ITS ---
Examination: Abdomen AP single view Technique: AP portable supine abdomen, single view Exam date and time: December 05, 2024 0430 hrs. Indications: Abdominal pain 3 months. Findings: Air and fluid present throughout the colon Multiple air distended small bowel loops in addition No definite free air The osseous structures are intact Impression: Consider repeat CT scan abdomen pelvis follow-up to exclude small bowel obstruction
--- NOTE | 2024-12-05 04:28 | PD.EDRME ---
Rapid Medical Screening Exam RME Arrival date/time: 12/05/24 03:37 69-year-old male WENDY presents emergency department complaining of diffuse abdominal pain, nausea vomiting, and constipation. Chief Complaint: Abdominal Pain Time Seen by Provider: 12/05/24 04:27 Vital signs: Vital Signs Temperature 97.4 F 12/05/24 03:41 Pulse Rate 106 H 12/05/24 03:41 Respiratory Rate 17 12/05/24 03:41 Blood Pressure 149/85 H 12/05/24 03:41 Pulse Oximetry (%) 98 12/05/24 03:41 Oxygen Delivery Method Room Air 12/05/24 03:41 Vital signs reviewed by provider: Yes
[2024-12-05] MEDS: ONDANSETRON ODT 4 MG TABRAP PO (04:41)
--- NOTE | 2024-12-05 06:23 | XR_ITS ---
Examination: CT lumbar spine, without contrast. 2-D sagittal reconstructions. 2-D coronal reconstructions. 3-D reconstructions. Date and time of exam:December 05, 2024 0848 hours INDICATIONS: Onset low back pain radiating down the right leg today CTDI: vol (mGy):22.3 DLP: (mGycm):748 Technique: Multiple 1.25 mm axial sections of the lumbar spine without intravenous contrast have been obtained. 2-D sagittal and coronal reconstructions have been obtained. 3-D reconstructions have been obtained. Low dose protocols were performed. One or more of the following dose reduction techniques were used; automated exposure control, adjustment of the mA and/or KV according to patient size, use of iterative reconstruction technique. Findings: Transitional S1 vertebral body No lumbar fracture Grade 1 anterolisthesis L4 on L5 Advanced degenerative disc disease L4-L5, L5-S1 L5-S1 5 mm central lumbar disc bulge contiguous with the S1 nerve roots with mild bilateral L5 ganglionic compression L4-L5 severe spinal stenosis, secondary to the anterolisthesis, 6 mm central lumbar disc bulge, facet arthropathy and thickening of ligamenta flava with mild bilateral L4 ganglionic compression L3-L4 no disc protrusion L2-L3 no disc protrusion L1-L2 no disc protrusion IMPRESSION: Advanced degenerative disc disease L4-L5, L5-S1 L5-S1 5 mm central lumbar disc bulge contiguous with the right and left S1 nerve roots and producing mild bilateral L5 ganglionic compression L4-L5 severe overall spinal stenosis as above
[2024-12-05 06:52] LABS: Lactate (Lactic Acid) 1.2 mMol/L (0.4-2.0)
[2024-12-05] MEDS: KETOROLAC INJ 30 MG/ML VIAL IVP (06:52)
[2024-12-05] MEDS: MORPHINE SULF INJ 10 MG/ML VIAL 5 MG IVP (06:53)
[2024-12-05] MEDS: SODIUM CHLORIDE 0.9% 1000 ML 1,000 ML 999 ML IV (06:54)
[2024-12-05] MEDS: ACETAMINOPHEN IVPB 1,000 MG/100 ML VIAL 250 MG IV (06:55)
[2024-12-05] MEDS: cefTRIAXone 1,000 MG in SODIUM CHLORIDE 0.9% (P) 50 ML 100 MG IV (06:56)
[2024-12-05 07:01] LABS: Basophils % (Auto) 0 % (0-2.5); Eosinophils % (Auto) 0 % (0-10); Hemoglobin 11.1 g/dL (13.5-16.0); Immature Granulocytes % (Auto) 1 % (0-0); Immature Granulocytes Auto 0.08 Thou/mm3 (0.00-0.00); Lymphocytes # (Auto) 1.3 Thou/mm3 (1.0-4.8); Lymphocytes % (Auto) 9 % (10-50); Mean Corpuscular HGB Conc 33.6 g/dl (31.0-37.0); Mean Corpuscular Hemoglobin 31.4 pg (25.0-35.0); Mean Corpuscular Volume 93 fL (80-100); Monocytes % (Auto) 7 % (0-12); Neutrophils # (Auto) 12.7 Thou/mm3 (1.8-7.7); Neutrophils % (Auto) 84 % (37-80); Nucleated Red Blood Cell % 0 /100 WBC (0); Platelet Count 400 Thou/mm3 (140-440); RDW Standard Deviation 43.4 fL (35.1-43.9); Red Blood Count 3.54 Miln/mm3 (4.50-5.90); White Blood Count 15.1 Thou/mm3 (3.8-10.6)
[2024-12-05 07:49] LABS: Alanine Aminotransferase < 7 U/L (10-49); Albumin, Serum 4.5 gm/dL (3.4-4.8); Albumin/Globulin Ratio 1.2 (1.2-2.2); Alkaline Phosphatase 117 U/L (46-116); Amylase 36 U/L (30-118); Anion Gap 10 (7-16); Aspartate Amino Transferase 12 U/L (0-34); BUN/Creatinine Ratio 17 Ratio (12-20); Bilirubin,Total 0.6 mg/dL (0.3-1.2); Blood Urea Nitrogen 15 mg/dL (9-23); C-Reactive Protein 5.4 mg/dL (0.0-0.9); Calcium 9.7 mg/dL (8.3-10.6); Calcium (Corrected) 9.7 mg/dL (8.5-10.1); Carbon Dioxide 25.3 mMol/L (20.0-31.0); Chloride 97 mMol/L (98-107); Creatinine (Component) 0.9 mg/dL (0.6-1.3); Estimated Creatinine Clearance 83.1 mL/min (>60); Globulin 3.9 gm/dL (2.3-3.5); Glucose 157 mg/dL (74-106); Lipase 30 U/L (12-53); Magnesium 1.6 mg/dL (1.6-2.6); Osmolality,Calculated 268 (275-295); Sodium 132 mMol/L (136-145); Total Protein 8.4 gm/dL (5.7-8.2); eGFR > 60 See Note
--- NOTE | 2024-12-05 08:08 | EDNOTE_ITS ---
ED Abdominal Pain RME/HPI General Chief Complaint: Abdominal Pain Stated complaint: ABD PAIN AND BACK PAIN Time seen by provider: 12/05/24 04:27 Arrival date/time: 12/05/24 03:37 RME / HPI RME / HPI narrative: 12/05/24 03:37 69-year-old male WENDY presents emergency department complaining of diffuse abdominal pain, nausea vomiting, and constipation. This section includes all my notes and documentations, including HPI, PE, and ED course. Alexandre Wyatt MD HPI: 69-year-old male here to be evaluated with multiple concerns. In the past few days, he reports severe low back pain. Radiating into the right leg and into the abdomen and chest, has trouble localizing further. He reports severe stabbing and sharp pain. He also reports severe tingling in the right leg. No paralysis. No saddle numbness. He reports loss of control of the bladder and bowels. Has subjective fever and chills. No cough. No other complaints ROS: All negative except as documented in HPI. Physical Exam: General: Alert and oriented. In severe pain. Eyes: Conjunctivae and lids clear. EOMI. PERRL. ENT: No nasal congestion. Pharynx normal. Tympanic membrane normal bilaterally. Neck: Supple. No carotid bruit. No JVD. Heart: RRR. Lungs: No respiratory distress. Good air movement. No rhonchi, wheezing, rales. Chest: Equivocal tenderness, difficult to localize. Abdomen: Soft with equivocal tenderness, difficult to localize. Normal bowel sounds. No distension. No rebound or guarding. Back: Severe tenderness, difficult to localize Legs: No clubbing, cyanosis, edema. Skin: Warm and dry. Neuro: Alert and oriented X 3. Cranial Nerves II-XII grossly intact. No peripheral motor deficits. I reviewed all diagnostic test results. My review of the chest/abdomen/pelvis CT report is no acute findings. My review of the lumbar spine CT report is: Advanced degenerative disc disease L4-L5, L5-S1. L5-S1 5 mm central lumbar disc bulge contiguous with the right and left S1 nerve roots and producing mild bilateral L5 ganglionic compression. L4-L5 severe overall spinal stenosis as above. My review of the lumbar spine MRI report is: Advanced degenerative disc disease L4-L5, L5-S1. L5-S1 partially extruded 7 mm central right paracentral disc bulge displacing the right S1 nerve root, mild bilateral L5 ganglionic compression. L4-L5 moderate to severe overall spinal stenosis, 6 mm left 7 mm right foraminal disc bulges with severe right L4 ganglionic compression. Blood tests and urine tests remarkable for WBC 15.1, CRP 5.4. COVID/influenza/RSV/strep negative. At this point, diagnoses include lumbar spinal stenosis and fever. Treatment here included IV fluid and Toradol and Tylenol and Rocephin and morphine and Dilaudid. Significant improvement not noted. Transfer for neurosurgery service initiated. At 6 PM, the care of the patient was transferred to Dr. Nguyen. Alexandre Wyatt MD Related Data Home Medications ?Medication ?Instructions ?Recorded ?Confirmed albuterol sulfate 90 mcg/actuation 2 puff inhalation Q6HR PRN 02/19/17 07/12/23 aerosol inhaler (Proventil HFA) WHEEZING #0 inhalations docusate sodium 100 mg capsule 100 mg PO BID #0 caps 02/19/17 07/12/23 (Colace) gabapentin 300 mg capsule 300 mg PO BID #0 caps 02/19/17 07/12/23 meloxicam 15 mg tablet (Mobic) 15 mg PO HS #0 tabs 02/19/17 07/12/23 metoprolol tartrate 50 mg tablet 50 mg PO HS #0 tabs 02/19/17 07/12/23 montelukast 10 mg tablet 10 mg PO HS #0 tabs 02/19/17 07/12/23 (Singulair) omeprazole 20 mg capsule,delayed 40 mg PO QDAY ##0 02/19/17 07/12/23 release hydrocodone 10 mg-acetaminophen 1 tab PO Q6H PRN Pain 01/28/18 07/12/23 325 mg tablet (Damascus) metformin 1,000 mg tablet 1,000 mg PO BID PRN Hyperglycemia 01/28/18 07/12/23 phentermine 37.5 mg capsule 37.5 mg PO QDAY 01/28/18 07/12/23 buprenorphine 15 mcg/hour weekly 15 mcg topical QWEEK 07/09/23 07/12/23 transdermal patch cyclobenzaprine 10 mg tablet 10 mg PO QDAY 07/09/23 07/12/23 famotidine 40 mg tablet 40 mg PO QDAY 07/09/23 07/12/23 semaglutide 0.25 mg or 0.5 mg (2 2 mg subcut QWEEK 07/09/23 07/12/23 mg/3 mL) subcutaneous pen injector (Ozempic) tiotropium 2.5 mcg-olodaterol 2.5 1 inh inhalation UD 07/09/23 07/12/23 mcg/actuation mist for inhalation (Stiolto Respimat) valsartan 160 mg tablet 320 mg PO QDAY 07/09/23 07/12/23 Previous Rx's ?Medication ?Instructions ?Recorded famotidine 20 mg tablet 20 mg PO BID #20 tabs 10/10/24 Allergies Allergy/AdvReac Type Severity Reaction Status Date / Time Penicillins AdvReac Abdominal Verified 12/02/24 14:42 Pain Review of Systems Review of Systems Systems Reviewed: All systems reviewed, normal except as documented Past Medical History Past Medical History NEUROLOGIC: Positive Neurological Disorders and Head Trauma CARDIAC: Positive Hypercholesterolemia, Edema and Hypertension RESPIRATORY: Positive Asthma and Sleep Apnea GASTROINTESTINAL: Positive Gastrointestinal Disorders, Diverticulitis, Ulcer and Gastroesophageal Reflux Disease GENITOURINARY: Positive Genitourinary Disorders and Kidney Stones MUSCULOSKELETAL: Positive Arthritis and Carpal Tunnel Syndrome ENT: Positive Head Trauma ENDOCRINE: Positive Endocrine Disorders HEMATOLOGIC: Positive Blood Disorders and Anemia Family History FAMILY HISTORY: Positive Family Cardiac Disorders and Family Cancer Surgical History SURGICAL: Positive Nose Surgery, Abdominal Surgery, Gastric Bypass Surgery and Joint Replacement Social History SMOKING STATUS: Unknown if ever smoked ED Exam Narrative Physical exam: As noted in HPI Course Quality Measures none Orders Category Date Time Status Bedside COVID-19 Antigen Test NOW Care 12/05/24 06:25 Active Bedside Influenza A&B Antigen Test NOW Care 12/05/24 06:25 Completed MRI Screening NOW Care 12/05/24 11:00 Active Saline [Insert IV] NOW Care 12/05/24 06:21 Active Straight [In and Out Catheter] X1 Care 12/05/24 06:21 Completed Referral - Package Reinspector Stat Cons 12/05/24 16:[address] chest abdomen pelvis wo Stat Exams 12/05/24 08:[address] lumbar spine wo con Stat Exams 12/05/24 06:23 Completed MR lumbar spine wo/w con Stat Exams 12/05/24 Completed XR abdomen 1V Stat Exams 12/05/24 04:27 Completed Amylase Stat Lab 12/05/24 06:44 Completed Blood Culture (Lab) Stat Lab 12/05/24 06:44 Received C-Reactive Protein Stat Lab 12/05/24 06:44 Completed CBC Stat Lab 12/05/24 06:44 Completed CMP [Comprehensive Metabolic Panel] Stat Lab 12/05/24 06:44 Completed Lactate (Lactic Acid) Stat Lab 12/05/24 06:44 Completed Lipase Stat Lab 12/05/24 06:44 Completed Magnesium Stat Lab 12/05/24 06:44 Completed [place] Screen Stat Lab 12/05/24 06:44 Received Procalcitonin Stat Lab 12/05/24 06:44 Completed RSV [Respiratory Syncytial Virus Ag] Stat Lab 12/05/24 10:40 Completed Strep A Rapid Stat Lab 12/05/24 10:40 Completed Urinalysis, C/S if Indicated Stat Lab 12/05/24 11:05 Completed Acetaminophen Ivpb [Ofirmev Inj] Med 12/05/24 06:21 Discontinued 1,000 mg in 100 ml IV NOW HYDROmorphone INJ [Dilaudid Inj] Med 12/05/24 11:06 Discontinued 1 mg IVP X1 ONE HYDROmorphone INJ [Dilaudid Inj] Med 12/05/24 13:43 Discontinued 2 mg IM X1 ONE Ketorolac Inj [Toradol Inj] Med 12/05/24 06:21 Discontinued 30 mg IVP X1 ONE Morphine Inj Med 12/05/24 06:21 Discontinued 5 mg IVP X1 ONE Ondansetron Odt [Zofran Odt] Med 12/05/24 04:29 Discontinued 4 mg PO X1 ONE Sodium Chloride 0.9% 1000 ml [Ns] 1,000 ml Med 12/05/24 06:21 Discontinued IV 999 mls/hr cefTRIAXone [Rocephin] 1,000 mg Med 12/05/24 06:21 Discontinued Sodium Chloride 0.9% (P) [Ns 0.9% (P)] 50 ml IV X1 Vital Signs Vital signs: Vital Signs Temperature 97.4 F 12/05/24 03:41 Pulse Rate 106 H 12/05/24 03:41 Respiratory Rate 17 12/05/24 03:41 Blood Pressure 149/85 H 12/05/24 03:41 Pulse Oximetry (%) 98 12/05/24 03:41 Oxygen Delivery Method Room Air 12/05/24 03:41 Pulse ox is 98% on room air which is adequate. Abdominal Pain MDM Patient data External records reviewed:: [facility] previous records (I reviewed ED visit on 12/03/2024) Clinical information provided by:: patient and EMS Social determinants that could affect healthcare access:: none Patient has the following chronic illnesses:: Hypertension, diabetes, s/p gastric sleeve, chronic back pain How is presenting disease/condition affected by chronic disease/condition?: exacerbated by Evaluation data The following diagnostics were reviewed and interpreted by me:: lab results and radiology exam(s) Lab and/or radiology exams considered but not ordered:: None Interpretation Summary: Lumbar spinal stenosis Medications / Prescriptions Medications or Prescriptions considered but not ordered:: None Medication administrations:: Medication Administration History Discontinued Medications Hydromorphone HCl (Hydromorphone Inj 2 Mg/Ml Vial) 1 mg IVP X1 ONE Stop: 12/05/24 11:07 Last Admin: 12/05/24 11:38 Dose: 1 mg Documented By: EMILY Hydromorphone HCl (Hydromorphone Inj 2 Mg/Ml Vial) 2 mg IM X1 ONE Stop: 12/05/24 13:44 Last Admin: 12/05/24 13:47 Dose: 2 mg Documented By: EMILY Sodium Chloride (Ns) 1,000 mls @ 999 mls/hr IV .Q1H1M ONE Stop: 12/05/24 07:21 Last Infusion: 12/05/24 07:55 Dose: Infused Documented By: Admin: 12/05/24 06:54 Dose: 999 mls/hr Documented By: NAS Acetaminophen (Ofirmev Inj) 1,000 mg in 100 mls @ 250 mls/hr IV NOW ONE Stop: 12/05/24 06:44 Last Infusion: 12/05/24 07:20 Dose: Infused Documented By: Admin: 12/05/24 06:55 Dose: 250 mls/hr Documented By: NAS Ceftriaxone Sodium 1,000 mg/ (Sodium Chloride) 50 mls @ 100 mls/hr IV X1 ONE Stop: 12/05/24 06:50 Last Infusion: 12/05/24 07:20 Dose: Infused Documented By: Admin: 12/05/24 06:56 Dose: 100 mls/hr Documented By: NAS Ketorolac Tromethamine (Ketorolac Inj 30 Mg/Ml Vial) 30 mg IVP X1 ONE Stop: 12/05/24 06:22 Last Admin: 12/05/24 06:52 Dose: 30 mg Documented By: NAS Morphine Sulfate (Morphine Sulf Inj 10 Mg/Ml Vial) 5 mg IVP X1 ONE Stop: 12/05/24 06:22 Last Admin: 12/05/24 06:53 Dose: 5 mg Documented By: NAS Ondansetron HCl (Ondansetron Odt 4 Mg Tabrap) 4 mg PO X1 ONE; Protocol Stop: 12/05/24 04:30 Last Admin: 12/05/24 04:41 Dose: 4 mg Documented By: MELA IV fluid and Toradol and Tylenol and Rocephin and morphine and Dilaudid Consultations Consultation(s) initiated? (list below): Yes Consultation #1 (Physician, Specialty, Details): Outside neurosurgery consult pending Diagnosis Differential diagnosis abdominal pain: abdominal pain, acute appendicitis, calculus of kidney, constipation, diverticulitis, small bowel obstruction and other (UTI, pyelonephritis, lumbar spinal stenosis, sepsis) Most likely diagnosis given after review of the tests above:: Lumbar spinal stenosis Admission Indicated Admission indicated?: not indicated Explain why admission is indicated or not indicated:: No neurosurgery service here Admission Request Was there a request for admission?: No Disposition Plan Disposition Plan: other (specify) (Care of the patient was transferred to Dr. Nguyen) Discharge Plan Prescriptions/Referrals Prescriptions/Med Rec: No Action metoprolol tartrate 50 MG tablet 50 mg PO HS Qty: 0 montelukast [Singulair] 10 MG tablet 10 mg PO HS Qty: 0 meloxicam [Mobic] 15 MG tablet 15 mg PO HS Qty: 0 docusate sodium [Colace] 100 MG capsule 100 mg PO BID Qty: 0 gabapentin 300 MG capsule 300 mg PO BID Qty: 0 omeprazole 20 MG capsule,delayed release(DR/EC) 40 mg PO QDAY Qty: 0 albuterol sulfate [Proventil HFA] 6.7 GM HFA aerosol inhaler 2 puff Inhalation Q6HR PRN (Reason: WHEEZING) Qty: 0 hydrocodone-acetaminophen [Damascus] 10-325 mg Tablet 1 tab PO Q6H PRN (Reason: Pain) Hold Instructions: Resume on 07/13/23. metformin 1,000 mg Tablet 1,000 mg PO BID PRN (Reason: Hyperglycemia) phentermine 37.5 mg Capsule 37.5 mg PO QDAY cyclobenzaprine 10 mg tablet 10 mg PO QDAY Hold Instructions: Resume on 07/13/23. famotidine 40 mg tablet 40 mg PO QDAY valsartan 160 mg tablet 320 mg PO QDAY buprenorphine 15 mcg/hour patch weekly 15 mcg TOPICAL QWEEK Patient Comments: APPLY 1 PATCH TO THE SKIN EVERY 7 DAYS FOR PAIN Rx Instructions: on mondays Stiolto Respimat 2.5-2.5 mcg/actuation mist 1 inh INHALATION UD Rx Instructions: USE INHALATION TREATMENT INSTRUCTED Ozempic 0.25 mg or 0.5 mg (2 mg/3 mL) pen injector 2 mg SUBCUT QWEEK famotidine 20 mg tablet 20 mg PO BID Qty: 20 0RF Referrals: Cooper Clemens MD [Primary Care Provider] - In 1 week Problem List Clinical Impression: Lumbar spinal stenosis Patient/Caregiver Discharge Instructions Print Language: Frisian
[2024-12-05 08:10] LABS: Procalcitonin 0.19 ng/ml (0.0-0.49)
--- NOTE | 2024-12-05 08:45 | XR_ITS ---
Examination: CT chest, without intravenous contrast. CT abdomen, without intravenous contrast. CT pelvis, without intravenous contrast. 2-D sagittal and coronal reconstructions. 3-D reconstructions. Date and time of exam:December 05, 2024 0848 hours INDICATIONS: Chest pain abdominal pain with fever today COMPARISON: CT abdomen pelvis December 02, 2024 CTDI vol (mgy) 8.06 DLP (MGycm)675 Technique: Multiple CT images, 3.0 mm slice thickness, obtained chest, abdomen, pelvis, with the high-resolution 64 slice scanner.. Sagittal and coronal 2-D reconstructions are obtained. 3-D reconstructions Low dose protocols were performed. One or more of the following dose reduction techniques were used; automated exposure control, adjustment of the mA and/or KV according to patient size, use of iterative reconstruction technique. Findings: Thoracic aortic calcification no aneurysmal dilatation Pulmonary artery segments are not enlarged No paratracheal tracheobronchial or adenopathy Minor atelectasis in the left upper lobe No lobar pneumonia or pulmonary edema 4 mm pulmonary nodule right upper lobe image 161 17 mm pleural-based pulmonary nodule right lung image 202 Trace pericardial effusion No focal liver or splenic lesions Distended gallbladder Spleen is not enlarged No pancreatic or adrenal mass 1 mm nonobstructing left renal calculus Perinephric stranding No hydronephrosis or ureteral calculi No pericecal inflammatory change, normal appendix coronal image 61 No bowel obstruction No diverticulitis Mildly distended urinary bladder Normal seminal vesicles Transverse prostate dimension 4.1 cm Please see the CT lumbar spine report IMPRESSION: No pneumonia or pulmonary edema Pulmonary nodules as above, including 17 mm pleural-based pulmonary nodule right midlung, noted on the CT chest May 27, 2023 and biopsied on July 17, 2023 1 mm nonobstructing left renal calculus No abdominal or pelvic abscess Normal appendix
--- NOTE | 2024-12-05 10:48 | PC.NURSE ---
Pt taken to the [facility] via [facility], will attempt to provide UA sample.
[2024-12-05 11:22] LABS: Collection Type, Urine Clean Catch
[2024-12-05 11:31] LABS: Bilirubin,Urine Negative (Negative); Blood,Urine Negative (Negative); Clarity,Urine Clear (Clear/Hazy); Color,Urine Lt-Yellow (Lt Yel-Yel); Culture Indicated,Urine Not Indicated; Glucose, Urine Negative (Negative); Hyaline Casts,Urine < 1 /hpf (0-1); Ketones,Urine 1+ (Negative); Leukocyte Esterase,Urine Negative (Negative); Nitrite,Urine Negative (Negative); PH,Urine 6.5 (5.0-7.0); Protein,Urine Negative (Neg - Trace); RBC,Urine 3 /hpf (0-3); Specific Gravity,Urine 1.012 (1.001-1.035); Squamous Epithelial Cell,Urine < 1 /hpf (0-5); Urobilinogen,Urine Negative mg/dL (0.0-1.0); WBC,Urine 2 /hpf (0-5)
[2024-12-05] MEDS: HYDROmorphone INJ 2 MG/ML VIAL 1 MG IVP ×2 (11:38→20:03)
[2024-12-05 11:39] LABS: Respiratory Syncytial Virus Ag Negative (Negative); Strep A Rapid Negative (Negative)
[2024-12-05] MEDS: HYDROmorphone INJ 2 MG/ML VIAL IM (13:47)
--- NOTE | 2024-12-05 16:58 | PC.CM ---
Addendum entered by Apple Donohue RN 12/05/24 19:38: pick pack worker time set for 2100. I called [facility] change nurse and gave him the time. Addendum entered by Apple Donohue RN 12/05/24 18:17: I spoke to Jose at [facility] and she states patient has been accepted by Dr. Pineda ED to ED. Number to call and give report is [phone]. I will call and set up transport. Addendum entered by Apple Donohue RN 12/05/24 18:03: I spoke to our ED and verified Dr. Wyatt did speak to the transfer center at [facility]. I started packet and made a CD. Addendum entered by Apple Donohue RN 12/05/24 17:47: 1745 I spoke to Tiffanie from [facility] and I connected her with Dr. Wyatt. Addendum entered by Apple Donohue RN 12/05/24 17:07: 1655 I called [facility] and I let them know I pushed over images and i faxed information. Original Note: 1612 I received a referral to transfer patient for L4-L5 severe stenosis. I will fax information to [facility] and push over images.
--- NOTE | 2024-12-05 18:10 | PD.EDADDENDU ---
Emergency Room Addendum Addendum Narrative: 18:00 Care assumed from Alexandre Graves MD. Past medical, surgical, social and family history reviewed. Vitals and home medications reviewed. Results and treatment plan discussed. They will assume the care of the patient at this time and will follow the patient, pending transfer for neurosurgery service. Please refer to the emergency department record for history and examination from initial visit. EMS notes reviewed by me. Nursing notes reviewed by me. Vital signs reviewed by me. [place] medical records reviewed by me. 18:16 Case d/w Dr. Barahona at [facility] who was made aware of the patient?s HPI, PMHx, lab and/or radiology results. Accepts patient for transfer. MD Attestation MD Attestation Scribe Attestation: Sharad Mathew, mauro scribing for and in the presence of Dr. Nguyen. Provider Notation: Although this document has been carefully reviewed, there may still be some phonetic and other typographical errors. These errors are purely grammatical due to imperfections in the software program and should not be construed in any way to compromise the substance of the patient's medical care during this visit.
--- NOTE | 2024-12-05 20:11 | PC.NURSE ---
[facility] HERE NOW TO TAKE PT TO OTHER [facility]OSPITAL. pT HAVEING SEVERE PAIN. md AWARE AND PAIN MED GIVEN. Pt taken to the [facility].
--- NOTE | 2024-12-05 20:35 | PC.NURSE ---
[facility] Pt taken by EMS now.
== END 2024-12-05 20:22 | disposition short-term general hospital (02) ==
PROVIDERS: Emergency Medicine; Emergency Provider Emergency Medicine; PCP Specialist
DX: M48.061 Spinal stenosis, lumbar region without neurogenic claudication (principal); R10.84 Generalized abdominal pain; R11.2 Nausea with vomiting, unspecified; K59.00 Constipation, unspecified; R20.2 Paresthesia of skin; M51.360 Other intervertebral disc degeneration, lumbar region with discogenic back pain only; M51.370 Other intervertebral disc degeneration, lumbosacral region with discogenic back pain only; G95.29 Other cord compression; R07.9 Chest pain, unspecified; R50.9 Fever, unspecified
CPT/HCPCS: 51701; 36415; 71250; 72131; 72158; 74018; 74176; 80053; 81001; 82150; 83605; 83690; 83735; 84145; 85025; 85652; 86140; 86308; 87040; 87077; 87186; 87400; 87634; 87651; 87811; 96361; 96365; 96372; 96375; 96376; 99285; A9579; J0131; J0696; J1885; J2270; J3490; J7030; J7050; Q0162

== ENCOUNTER 2024-12-13 22:27 | Emergency (ER) | payer MEDICARE, BC, SELFPAY ==
[2024-12-13 22:32] VITALS: BP 166/76; PULSE 106; RESP 18; O2SAT 97
[2024-12-13 23:08] VITALS: PULSE 74; O2SAT 98
--- NOTE | 2024-12-13 23:17 | EDNOTE_ITS ---
ED Abdominal Pain RME/HPI General Chief Complaint: Abdominal Pain Stated complaint: HEART BURN Time seen by provider: 12/13/24 23:15 Arrival date/time: 12/13/24 22:27 Limitations: no limitations RME / HPI RME / HPI narrative: Dr. Molina's Main ED Evaluation: 69yo male with pmhx HTN, GERD BIBA from [facility] presents to the ED for a chief complaint of heartburn. Per EMS, [facility] sent the patient after having a bowel movement. Patient states he's been having nausea due to not being given his GERD medications at the facility. Patient denies any chest pain, shortness of breath, vomiting or any other associated symptoms. Related Data Home Medications ?Medication ?Instructions ?Recorded ?Confirmed albuterol sulfate 90 mcg/actuation 2 puff inhalation Q6HR PRN 02/19/17 07/12/23 aerosol inhaler (Proventil HFA) WHEEZING #0 inhalations docusate sodium 100 mg capsule 100 mg PO BID #0 caps 02/19/17 07/12/23 (Colace) gabapentin 300 mg capsule 300 mg PO BID #0 caps 02/19/17 07/12/23 meloxicam 15 mg tablet (Mobic) 15 mg PO HS #0 tabs 02/19/17 07/12/23 metoprolol tartrate 50 mg tablet 50 mg PO HS #0 tabs 02/19/17 07/12/23 montelukast 10 mg tablet 10 mg PO HS #0 tabs 02/19/17 07/12/23 (Singulair) omeprazole 20 mg capsule,delayed 40 mg PO QDAY ##0 02/19/17 07/12/23 release hydrocodone 10 mg-acetaminophen 1 tab PO Q6H PRN Pain 01/28/18 07/12/23 325 mg tablet ([place]) metformin 1,000 mg tablet 1,000 mg PO BID PRN Hyperglycemia 01/28/18 07/12/23 phentermine 37.5 mg capsule 37.5 mg PO QDAY 01/28/18 07/12/23 buprenorphine 15 mcg/hour weekly 15 mcg topical QWEEK 07/09/23 07/12/23 transdermal patch cyclobenzaprine 10 mg tablet 10 mg PO QDAY 07/09/23 07/12/23 famotidine 40 mg tablet 40 mg PO QDAY 07/09/23 07/12/23 semaglutide 0.25 mg or 0.5 mg (2 2 mg subcut QWEEK 07/09/23 07/12/23 mg/3 mL) subcutaneous pen injector (Ozempic) tiotropium 2.5 mcg-olodaterol 2.5 1 inh inhalation UD 07/09/23 07/12/23 mcg/actuation mist for inhalation (Stiolto Respimat) valsartan 160 mg tablet 320 mg PO QDAY 07/09/23 07/12/23 Previous Rx's ?Medication ?Instructions ?Recorded famotidine 20 mg tablet 20 mg PO BID #20 tabs 10/10/24 Allergies Allergy/AdvReac Type Severity Reaction Status Date / Time Penicillins AdvReac Abdominal Verified 12/02/24 14:42 Pain Review of Systems Review of Systems Systems Reviewed: All systems reviewed, normal except as documented ED Exam General Limitations: Present no limitations General appearance: Present alert, in no apparent distress and other (has stool in his brief) Head Head exam: Present atraumatic Eye Eye exam: Present normal appearance, PERRL and EOMI ENT ENT exam: Present normal exam, normal oropharynx and mucous membranes moist Neck Neck exam: Present normal inspection, full ROM and trachea midline Chest Chest inspection: Present normal inspection and symmetric chest wall rise Respiratory Respiratory exam: Present normal lung sounds bilaterally Cardiovascular Cardiovascular exam: Present regular rate, normal rhythm and normal heart sounds Abdominal Exam Abdominal exam: Present soft and normal bowel sounds Extremities Exam Extremities exam: Present normal inspection and full ROM Back Exam Back exam: Present normal inspection and full ROM Neurological Exam Neurological exam: Present alert, oriented X3 and CN II-XII intact Psychiatric Psychiatric exam: Present normal affect and normal mood Skin Skin exam: Present warm, dry, intact and normal color Course Quality Measures none Orders Category Date Time Status EKG (ED ONLY) *Do not use* NOW Care 12/13/24 23:20 Completed EKG (ED Only) Stat Exams 12/13/24 23:20 Ordered Reevaluation(s) Reevaluation #1: Patient states his symptoms have resolved. Patient is stable to be discharged back to the SNF. Time: 00:41 Vital Signs Vital signs: Vital Signs Pulse Rate 106 H 12/13/24 22:32 Respiratory Rate 18 12/13/24 22:32 Blood Pressure 166/76 H 12/13/24 22:32 Pulse Oximetry (%) 97 12/13/24 22:32 Oxygen Delivery Method Room Air 12/13/24 22:32 Pulse ox is 97% on room air, which is normal according to my interpretation. Abdominal Pain MDM Patient data External records reviewed:: [facility] previous records (Per chart review, patient was seen here on 12/05/24 for lumbar spinal stenosis.) Clinical information provided by:: patient and EMS Social determinants that could affect healthcare access:: housing (Pt resides in a SNF.) Patient has the following chronic illnesses:: GERD, HTN How is presenting disease/condition affected by chronic disease/condition?: caused by Evaluation data The following diagnostics were reviewed and interpreted by me:: EKG tracing(s) Lab and/or radiology exams considered but not ordered:: none Interpretation Summary: EKG done at 2324, sinus tachycardia, rate of 111, no ST elevations or depressions, no STEMI, according to my interpretation. Medications / Prescriptions Medications or Prescriptions considered but not ordered:: none Medication administrations:: see above, if any Consultations Consultation(s) initiated? (list below): No Diagnosis Differential diagnosis abdominal pain: constipation and other (dehydration, electrolyte abnormality) Most likely diagnosis given after review of the tests above:: see below Admission Indicated Admission indicated?: not indicated Admission Request Was there a request for admission?: No Disposition Plan Disposition Plan: Discharge Discharge Attestation Discharge Attestation: The patient and all family members were given an opportunity to ask questions and understood the discharge instructions. Discharge instructions specifically effects, indications for sooner follow up or return to the emergency department, and the expected course of current diagnosis. Patient condition: Stable Discharge Plan Plan Patient Disposition: HOME (Self Care) Patient condition on transfer: Stable Prescriptions/Referrals Prescriptions/Med Rec: No Action metoprolol tartrate 50 MG tablet 50 mg PO HS Qty: 0 montelukast [Singulair] 10 MG tablet 10 mg PO HS Qty: 0 meloxicam [Mobic] 15 MG tablet 15 mg PO HS Qty: 0 docusate sodium [Colace] 100 MG capsule 100 mg PO BID Qty: 0 gabapentin 300 MG capsule 300 mg PO BID Qty: 0 omeprazole 20 MG capsule,delayed release(DR/EC) 40 mg PO QDAY Qty: 0 albuterol sulfate [Proventil HFA] 6.7 GM HFA aerosol inhaler 2 puff Inhalation Q6HR PRN (Reason: WHEEZING) Qty: 0 hydrocodone-acetaminophen [[place]] 10-325 mg Tablet 1 tab PO Q6H PRN (Reason: Pain) Hold Instructions: Resume on 07/13/23. metformin 1,000 mg Tablet 1,000 mg PO BID PRN (Reason: Hyperglycemia) phentermine 37.5 mg Capsule 37.5 mg PO QDAY cyclobenzaprine 10 mg tablet 10 mg PO QDAY Hold Instructions: Resume on 07/13/23. famotidine 40 mg tablet 40 mg PO QDAY valsartan 160 mg tablet 320 mg PO QDAY buprenorphine 15 mcg/hour patch weekly 15 mcg TOPICAL QWEEK Patient Comments: APPLY 1 PATCH TO THE SKIN EVERY 7 DAYS FOR PAIN Rx Instructions: on mondays Stiolto Respimat 2.5-2.5 mcg/actuation mist 1 inh INHALATION UD Rx Instructions: USE INHALATION TREATMENT INSTRUCTED Ozempic 0.25 mg or 0.5 mg (2 mg/3 mL) pen injector 2 mg SUBCUT QWEEK famotidine 20 mg tablet 20 mg PO BID Qty: 20 0RF Problem List Clinical Impression: History of constipation Patient/Caregiver Discharge Instructions Diet Instructions: Continue your medications and your diet as per your primary care physician. Education Materials: ED Constipation (Adult) Additional Instructions: Return to emergency department for any worsening symptoms or any other concerns. Print Language: Greenlandic Stand Alone Forms: Grace Award Info., Patient Portal Info Letter
[2024-12-13 23:18] VITALS: BMI 25.1
[2024-12-13 23:20] VITALS: BP 135/83; PULSE 109; RESP 14; TEMP 36.9; O2SAT 96
[2024-12-14 00:30] VITALS: BP 135/83; PULSE 98; RESP 18; O2SAT 97
--- NOTE | 2024-12-14 00:46 | PC.NURSE ---
Called and gave report to Jessenia at [facility]. Informed that pt is DC'd.
[2024-12-14 01:34] VITALS: PULSE 99; RESP 16; O2SAT 95
== END 2024-12-14 02:00 | disposition home or self-care (01) ==
LOC: SERX 12-14 00:55
PROVIDERS: Emergency Provider Emergency Medicine; PCP Specialist
DX: K59.00 Constipation, unspecified (principal); K21.9 Gastro-esophageal reflux disease without esophagitis; R00.0 Tachycardia, unspecified; I44.4 Left anterior fascicular block; I10 Essential (primary) hypertension
CPT/HCPCS: 93005; 99283

== ENCOUNTER → 2025-04-10 | Outpatient (CLI) | payer MEDICARE, BC, SELFPAY ==
--- NOTE | 2025-04-10 15:41 | XR_ITS ---
Examination: Lumbar spine 3 views Technique one AP lateral coned lateral lower lumbar spine 3 views Exam date and time: April 10, 2025 1500 hours INDICATIONS: Low back pain years. FINDINGS: Transpedicular lumbar stabilization L4-L5 Adequate alignment No lumbar fracture Moderate disc narrowing L4-L5, advanced disc narrowing L5-S1 IMPRESSION: Advanced degenerative disc disease L5-S1
== END | disposition home or self-care (01) ==
LOC: SDIM 15:31
PROVIDERS: PCP Specialist; Referring Provider Specialist; Visit Provider Specialist
DX: M51.370 Other intervertebral disc degeneration, lumbosacral region with discogenic back pain only (principal)
CPT/HCPCS: 72100

== ENCOUNTER → 2025-04-16 | Outpatient (CLI) | payer MEDICARE, BC, SELFPAY ==
--- NOTE | 2025-04-16 11:30 | XR_ITS ---
Examination: CT chest, without intravenous contrast. Sagittal and coronal 2-D reconstructions. Exam date and time: April 16, 2025 1130 hours INDICATIONS: CT chest December 05, 2024 4 mm pulmonary nodule right upper lobe 17 mm pulmonary nodule right lung CTDI:vol (mGy) 12.6 DLP: (mGycm) 513 Technique: Multiple 3.0 mm axial sections of the chest to been obtained. Bone and lung density settings are obtained. Sagittal and coronal 2-D reconstructions have been obtained. Low dose protocols were performed. One or more of the following dose reduction techniques were used; automated exposure control, adjustment of the mA and/or KV according to patient size, use of iterative reconstruction technique. Findings: No thoracic aortic aneurysm dilatation Pulmonary artery segments are not enlarged No paratracheal tracheobronchial or bronchopulmonary adenopathy 4 mm pulmonary nodule right upper lobe Stable 17 mm pulmonary nodule right lung New 4 mm pulmonary nodule left upper lobe No pneumonia or pulmonary edema No change in small right lobe liver cyst 2 mm left renal calculus IMPRESSION: A new 4 mm pulmonary nodule right upper lobe, suggest continued 6 month follow-up CT chest without contrast
== END | disposition home or self-care (01) ==
PROVIDERS: PCP Specialist; Referring Provider Specialist; Visit Provider Specialist
DX: Z12.2 Encounter for screening for malignant neoplasm of respiratory organs (principal); R91.1 Solitary pulmonary nodule
CPT/HCPCS: 71250

== ENCOUNTER → 2025-05-21 | Outpatient (CLI) | payer MEDICARE, BC, SELFPAY ==
[2025-05-21 15:33] LABS: Glucose Estimated Average 117 mg/dL (80-131); Hemoglobin A1C 5.7 % Hgb (4.8-6.0); Parathyroid Hormone Intact 53.2 pg/ml (18.5-88.0)
[2025-05-21 15:36] LABS: Creatinine MALB Rnd Ur 130 mg/dL (30-125); Microalbumin Creat Ratio 12 mg/gCrea (<30); Microalbumin, Random Urine 15 mg/L (0-300)
[2025-05-21 15:38] LABS: Alanine Aminotransferase 23 U/L (10-49); Albumin, Serum 4.3 gm/dL (3.4-4.8); Albumin/Globulin Ratio 1.4 (1.2-2.2); Alkaline Phosphatase 119 U/L (46-116); Anion Gap 9 (7-16); Aspartate Amino Transferase 33 U/L (0-34); BUN/Creatinine Ratio 21 Ratio (12-20); Bilirubin,Total 0.4 mg/dL (0.3-1.2); Blood Urea Nitrogen 21 mg/dL (9-23); Calcium 9.4 mg/dL (8.3-10.6); Calcium (Corrected) 9.4 mg/dL (8.5-10.1); Carbon Dioxide 27.2 mMol/L (20.0-31.0); Cardiac Risk Estimate 2.7 RATIO (4.0-6.7); Chloride 106 mMol/L (98-107); Cholesterol 186 mg/dL (132-200); Globulin 3.1 gm/dL (2.3-3.5); Glucose 114 mg/dL (74-106); HDL Cholesterol 69 mg/dL (40-60); LDL Cholesterol,Calculated 92 mg/dL (0-130); Osmolality,Calculated 287 (275-295); Potassium 4.7 mMol/L (3.4-5.1); Sodium 142 mMol/L (136-145); Total Protein 7.4 gm/dL (5.7-8.2); Triglycerides 126 mg/dL (30-150); eGFR > 60 See Note
[2025-05-21 15:40] LABS: Folate > 24.00 ng/mL (>5.38); Vitamin B12 406 pg/mL (211-911); Vitamin D 25 Hydroxy Total 28.4 ng/mL (7.3-40.2)
== END | disposition home or self-care (01) ==
LOC: COPL 14:07
PROVIDERS: PCP Specialist; Referring Provider Specialist; Visit Provider Specialist
DX: E11.65 Type 2 diabetes mellitus with hyperglycemia (principal); E83.51 Hypocalcemia; D51.9 Vitamin B12 deficiency anemia, unspecified
CPT/HCPCS: 36415; 80053; 80061; 82043; 82306; 82570; 82607; 82746; 83036; 83970

== ENCOUNTER → 2025-06-13 | Outpatient (CLI) | payer MEDICARE, BC, SELFPAY ==
[2025-06-13 17:47] LABS: Basophils # (Auto) 0.1 Thou/mm3 (0.0-0.2); Basophils % (Auto) 1 % (0-2.5); Eosinophils # (Auto) 0.2 Thou/mm3 (0.0-0.5); Eosinophils % (Auto) 2 % (0-10); Hematocrit 39.7 % (41.0-53.0); Hemoglobin 13.2 g/dL (13.5-16.0); Immature Granulocytes Auto 0.03 Thou/mm3 (0.00-0.00); Lymphocytes # (Auto) 2.8 Thou/mm3 (1.0-4.8); Lymphocytes % (Auto) 30 % (10-50); Mean Corpuscular HGB Conc 33.2 g/dl (31.0-37.0); Mean Corpuscular Hemoglobin 32.5 pg (25.0-35.0); Mean Corpuscular Volume 98 fL (80-100); Monocytes # (Auto) 0.5 Thou/mm3 (0.0-0.8); Monocytes % (Auto) 6 % (0-12); Neutrophils # (Auto) 5.9 Thou/mm3 (1.8-7.7); Neutrophils % (Auto) 62 % (37-80); Nucleated Red Blood Cell # 0.00 Thou/mm3 (0.00-0.00); Nucleated Red Blood Cell % 0 /100 WBC (0); Platelet Count 213 Thou/mm3 (140-440); RDW Standard Deviation 54.0 fL (35.1-43.9); Red Blood Count 4.06 Miln/mm3 (4.50-5.90); White Blood Count 9.5 Thou/mm3 (3.8-10.6)
[2025-06-13 17:54] LABS: Creatinine MALB Rnd Ur 125 mg/dL (30-125); Microalbumin Creat Ratio 15 mg/gCrea (<30); Microalbumin, Random Urine 19 mg/L (0-300)
[2025-06-13 20:05] LABS: Alanine Aminotransferase 19 U/L (10-49); Albumin, Serum 4.1 gm/dL (3.4-4.8); Albumin/Globulin Ratio 1.2 (1.2-2.2); Alkaline Phosphatase 110 U/L (46-116); Anion Gap 9 (7-16); Aspartate Amino Transferase 23 U/L (0-34); BUN/Creatinine Ratio 16 Ratio (12-20); Bilirubin,Total 0.4 mg/dL (0.3-1.2); Blood Urea Nitrogen 18 mg/dL (9-23); Calcium 9.3 mg/dL (8.3-10.6); Calcium (Corrected) 9.3 mg/dL (8.5-10.1); Carbon Dioxide 26.4 mMol/L (20.0-31.0); Cardiac Risk Estimate 2.7 RATIO (4.0-6.7); Chloride 107 mMol/L (98-107); Cholesterol 184 mg/dL (132-200); Creatinine (Component) 1.1 mg/dL (0.6-1.3); Globulin 3.3 gm/dL (2.3-3.5); Glucose 93 mg/dL (74-106); HDL Cholesterol 67 mg/dL (40-60); LDL Cholesterol,Calculated 81 mg/dL (0-130); Osmolality,Calculated 285 (275-295); Potassium 5.1 mMol/L (3.4-5.1); Sodium 142 mMol/L (136-145); Total Protein 7.4 gm/dL (5.7-8.2); Triglycerides 182 mg/dL (30-150); eGFR > 60 See Note
[2025-06-13 20:06] LABS: Iron 57 mcg/dL (65-175); Percent Iron Saturation 17 % (20-55); Prostate Specific Antigen 0.64 ng/mL (0-4.00); Total Iron Binding Capacity 320 mcg/dL (250-425); Unsaturated Iron Binding 263 (225-295)
[2025-06-13 20:11] LABS: Vitamin B12 1059 pg/mL (211-911)
[2025-06-13 20:20] LABS: Glucose Estimated Average 114 mg/dL (80-131); Hemoglobin A1C 5.6 % Hgb (4.8-6.0)
== END | disposition home or self-care (01) ==
LOC: COPL 16:12
PROVIDERS: PCP Specialist; Referring Provider Specialist; Visit Provider Specialist
DX: E11.65 Type 2 diabetes mellitus with hyperglycemia (principal); B38.0 Acute pulmonary coccidioidomycosis; E78.2 Mixed hyperlipidemia; D51.9 Vitamin B12 deficiency anemia, unspecified; Z12.5 Encounter for screening for malignant neoplasm of prostate
CPT/HCPCS: 36415; 80053; 80061; 82043; 82570; 82607; 83036; 83540; 83550; 84153; 85025; 86171

== ENCOUNTER → 2025-06-14 | Outpatient (CLI) | payer MEDICARE, BC, SELFPAY ==
[2025-06-14 14:28] LABS: Coccid Serology, CF (UCD)* See Sep Rpt
== END | disposition home or self-care (01) ==
LOC: COPL 14:13
PROVIDERS: PCP Specialist; Referring Provider Specialist; Visit Provider Specialist
DX: E11.65 Type 2 diabetes mellitus with hyperglycemia (principal); B38.0 Acute pulmonary coccidioidomycosis; E78.2 Mixed hyperlipidemia; D51.9 Vitamin B12 deficiency anemia, unspecified; Z12.5 Encounter for screening for malignant neoplasm of prostate
CPT/HCPCS: 86171

== ENCOUNTER 2025-08-09 09:31 | Outpatient (RCR) | payer MEDICARE, BC, SELFPAY ==
--- NOTE | 2025-08-09 10:00 | XR_ITS ---
Examination: MONTEZ, hepatobiliary radioisotope scan Gallbladder ejection fraction study. Date and time of exam: August 09, 2025 1751 hours INDICATIONS: Nausea vomiting beginning one year ago Technique: 5.9 mCi of 99M Hepatolite administered. Serial imaging then obtained from immediate through 60 minutes. 1.7 mcg selective catheter Kinevac administered for gallbladder ejection fraction study. Findings: Radioisotope activity within the liver is reasonably homogenous. Gallbladder, common bile duct small bowel activity noted Impression: Gallbladder activity, normal gallbladder ejection fraction 44%, normal greater than 35%
== END 2025-08-14 23:59 | disposition home or self-care (01) ==
LOC: SNUC 09:31
PROVIDERS: PCP Specialist; Referring Provider Specialist; Visit Provider Specialist
DX: R11.0 Nausea (principal); R10.13 Epigastric pain
CPT/HCPCS: 78227; A9537; J2805

== ENCOUNTER → 2025-09-19 | Outpatient (CLI) | payer MEDICARE, BC, SELFPAY ==
--- NOTE | 2025-09-19 16:51 | XR_ITS ---
Examination: Abdomen AP single view Technique: AP portable supine abdomen, single view Exam date and time: September 19, 2025, 1702 hours INDICATIONS: Abdominal pain onset beginning several years ago FINDINGS: Moderate air and stool throughout the colon No obstruction No free air Prominent osteopenia Lower lumbar fusion IMPRESSION: Moderate air and stool throughout the colon
[2025-09-19 17:23] LABS: Collection Type, Urine Clean Catch; Squamous Epithelial Cell,Urine 0 /hpf (0-5)
[2025-09-19 17:44] LABS: Basophils # (Auto) 0.0 Thou/mm3 (0.0-0.2); Basophils % (Auto) 0 % (0-2.5); Eosinophils # (Auto) 0.2 Thou/mm3 (0.0-0.5); Eosinophils % (Auto) 2 % (0-10); Hematocrit 39.3 % (41.0-53.0); Hemoglobin 13.2 g/dL (13.5-16.0); Immature Granulocytes Auto 0.03 Thou/mm3 (0.00-0.00); Lymphocytes # (Auto) 2.9 Thou/mm3 (1.0-4.8); Lymphocytes % (Auto) 33 % (10-50); Mean Corpuscular HGB Conc 33.6 g/dl (31.0-37.0); Mean Corpuscular Hemoglobin 34.3 pg (25.0-35.0); Mean Corpuscular Volume 102 fL (80-100); Monocytes # (Auto) 0.6 Thou/mm3 (0.0-0.8); Monocytes % (Auto) 7 % (0-12); Neutrophils # (Auto) 5.0 Thou/mm3 (1.8-7.7); Neutrophils % (Auto) 57 % (37-80); Nucleated Red Blood Cell # 0.00 Thou/mm3 (0.00-0.00); Nucleated Red Blood Cell % 0 /100 WBC (0); Platelet Count 200 Thou/mm3 (140-440); RDW Standard Deviation 51.1 fL (35.1-43.9); Red Blood Count 3.85 Miln/mm3 (4.50-5.90); White Blood Count 8.6 Thou/mm3 (3.8-10.6)
[2025-09-19 17:51] LABS: Bacteria,Urine Rare; Bilirubin,Urine Negative (Negative); Blood,Urine 1+ (Negative); Clarity,Urine Clear (Clear/Hazy); Color,Urine Lt-Yellow (Lt Yel-Yel); Glucose, Urine Negative (Negative); Ketones,Urine Negative (Negative); Leukocyte Esterase,Urine Positive (Negative); Nitrite,Urine Negative (Negative); PH,Urine 6.0 (5.0-7.0); Protein,Urine Negative (Neg - Trace); RBC,Urine 6 /hpf (0-3); Specific Gravity,Urine 1.022 (1.001-1.035); Urobilinogen,Urine Negative mg/dL (0.0-1.0); WBC,Urine 25 /hpf (0-5)
[2025-09-19 18:05] LABS: Glucose Estimated Average 111 mg/dL (80-131); Hemoglobin A1C 5.5 % Hgb (4.8-6.0)
[2025-09-19 18:10] LABS: Creatinine MALB Rnd Ur 69 mg/dL (30-125); Microalbumin Creat Ratio 14 mg/gCrea (<30); Microalbumin, Random Urine 10 mg/L (0-300)
[2025-09-19 18:11] LABS: Alanine Aminotransferase 17 U/L (10-49); Albumin, Serum 4.5 gm/dL (3.4-4.8); Albumin/Globulin Ratio 1.8 (1.2-2.2); Alkaline Phosphatase 81 U/L (46-116); Amylase 83 U/L (30-118); Anion Gap 7 (7-16); Aspartate Amino Transferase 25 U/L (0-34); BUN/Creatinine Ratio 21 Ratio (12-20); Bilirubin,Total 0.5 mg/dL (0.3-1.2); Blood Urea Nitrogen 23 mg/dL (9-23); Calcium 9.4 mg/dL (8.3-10.6); Calcium (Corrected) 9.4 mg/dL (8.5-10.1); Carbon Dioxide 27.8 mMol/L (20.0-31.0); Cardiac Risk Estimate 2.6 RATIO (4.0-6.7); Chloride 107 mMol/L (98-107); Cholesterol 170 mg/dL (132-200); Creatinine (Component) 1.1 mg/dL (0.6-1.3); Globulin 2.5 gm/dL (2.3-3.5); Glucose 86 mg/dL (74-106); HDL Cholesterol 66 mg/dL (40-60); LDL Cholesterol,Calculated 91 mg/dL (0-130); Lipase 57 U/L (12-53); Osmolality,Calculated 285 (275-295); Potassium 4.7 mMol/L (3.4-5.1); Sodium 142 mMol/L (136-145); Total Protein 7.0 gm/dL (5.7-8.2); Triglycerides 65 mg/dL (30-150); eGFR > 60 See Note
== END | disposition home or self-care (01) ==
LOC: CDIM 16:48 → COPL 17:11
PROVIDERS: PCP Specialist; Referring Provider Specialist; Visit Provider Radiology Diagnostic Radiology
DX: K59.00 Constipation, unspecified (principal); E11.69 Type 2 diabetes mellitus with other specified complication; R14.0 Abdominal distension (gaseous); R10.13 Epigastric pain
CPT/HCPCS: 36415; 74018; 80053; 80061; 81001; 82043; 82150; 82570; 83036; 83690; 85025

== ENCOUNTER → 2025-10-04 | Outpatient (CLI) | payer MEDICARE, BC, SELFPAY ==
[2025-10-04 10:33] LABS: Collection Type, Urine Clean Catch; Squamous Epithelial Cell,Urine 0 /hpf (0-5)
--- NOTE | 2025-10-04 11:00 | XR_ITS ---
Examination: CT chest, without intravenous contrast. Sagittal and coronal 2-D reconstructions. Exam date and time: October 04, 2025, 1011 hours, comparison April 16, 2025 INDICATIONS: 4 mm pulmonary nodule right upper lobe 17 mm pulmonary nodule right lung, 4 mm pulmonary nodule left upper lobe on CT chest April 16, 2025 CTDI:vol (mGy) 14.2 DLP: (mGycm) 575 Technique: Multiple 3.0 mm axial sections of the chest to been obtained. Bone and lung density settings are obtained. Sagittal and coronal 2-D reconstructions have been obtained. Low dose protocols were performed. One or more of the following dose reduction techniques were used; automated exposure control, adjustment of the mA and/or KV according to patient size, use of iterative reconstruction technique. Findings: No thoracic aortic aneurysmal dilatation Pulmonary artery segment 31 mm Heavy calcification left main left anterior descending and left circumflex coronary arteries Trace pericardial thickening Stable 4 mm pulmonary nodule right upper lobe Stable 17 mm pulmonary nodule lower right lung No new pulmonary nodules No pneumonia or pulmonary edema Severe osteopenia with chronic wedging upper dorsal vertebral bodies IMPRESSION: Stable pulmonary nodules compared to April 16, 2025, no new pulmonary nodules
[2025-10-04 11:30] LABS: Bacteria,Urine 1+; Bilirubin,Urine Negative (Negative); Blood,Urine 2+ (Negative); Color,Urine Yellow (Lt Yel-Yel); Glucose, Urine Negative (Negative); Hyaline Casts,Urine 1 /hpf (0-1); Ketones,Urine Negative (Negative); Leukocyte Esterase,Urine Positive (Negative); Nitrite,Urine Positive (Negative); PH,Urine 6.0 (5.0-7.0); Protein,Urine 1+ (Neg - Trace); RBC,Urine 26 /hpf (0-3); Specific Gravity,Urine 1.028 (1.001-1.035); Urobilinogen,Urine Negative mg/dL (0.0-1.0); WBC,Urine 385 /hpf (0-5)
[2025-10-04 11:40] LABS: Clarity,Urine Hazy (Clear/Hazy); Culture Indicated,Urine Yes
== END | disposition home or self-care (01) ==
PROVIDERS: Referring Provider Specialist; Visit Provider Specialist
DX: R91.8 Other nonspecific abnormal finding of lung field (principal); R31.9 Hematuria, unspecified
CPT/HCPCS: 71250; 81001; 87077; 87086; 87186

== ENCOUNTER → 2025-11-01 | Outpatient (CLI) | payer MEDICARE, BC, SELFPAY ==
[2025-11-01 12:50] LABS: Collection Type, Urine Clean Catch
[2025-11-01 13:12] LABS: Basophils # (Auto) 0.1 Thou/mm3 (0.0-0.2); Basophils % (Auto) 1 % (0-2.5); Eosinophils # (Auto) 0.2 Thou/mm3 (0.0-0.5); Eosinophils % (Auto) 2 % (0-10); Hematocrit 40.7 % (41.0-53.0); Hemoglobin 13.6 g/dL (13.5-16.0); Immature Granulocytes Auto 0.08 Thou/mm3 (0.00-0.00); Immature Reticulocyte Fraction 7.2 % (2.3-13.4); Lymphocytes # (Auto) 2.8 Thou/mm3 (1.0-4.8); Lymphocytes % (Auto) 33 % (10-50); Mean Corpuscular HGB Conc 33.4 g/dl (31.0-37.0); Mean Corpuscular Hemoglobin 34.0 pg (25.0-35.0); Mean Corpuscular Volume 102 fL (80-100); Monocytes # (Auto) 0.6 Thou/mm3 (0.0-0.8); Monocytes % (Auto) 7 % (0-12); Neutrophils # (Auto) 4.9 Thou/mm3 (1.8-7.7); Neutrophils % (Auto) 57 % (37-80); Nucleated Red Blood Cell # 0.00 Thou/mm3 (0.00-0.00); Nucleated Red Blood Cell % 0 /100 WBC (0); Platelet Count 214 Thou/mm3 (140-440); RDW Standard Deviation 47.7 fL (35.1-43.9); Red Blood Count 4.00 Miln/mm3 (4.50-5.90); Reticulocyte % (Auto) 1.2 % (0.5-1.5); Reticulocyte Absolute Auto 48.8 Biln/L (25.0-75.0); Reticulocyte Hgb Content 40.9 pg (28.0-35.0); White Blood Count 8.6 Thou/mm3 (3.8-10.6)
[2025-11-01 13:23] LABS: Bilirubin,Urine Negative (Negative); Blood,Urine 1+ (Negative); Clarity,Urine Clear (Clear/Hazy); Color,Urine Yellow (Lt Yel-Yel); Glucose, Urine Negative (Negative); Hyaline Casts,Urine 1 /hpf (0-1); Ketones,Urine Trace (Negative); Leukocyte Esterase,Urine Negative (Negative); Nitrite,Urine Negative (Negative); PH,Urine 6.0 (5.0-7.0); Protein,Urine Trace (Neg - Trace); RBC,Urine 9 /hpf (0-3); Specific Gravity,Urine 1.031 (1.001-1.035); Squamous Epithelial Cell,Urine < 1 /hpf (0-5); Urobilinogen,Urine 2.0 mg/dL (0.0-1.0); WBC,Urine 2 /hpf (0-5)
[2025-11-01 13:23] LABS: Free T4 (Free Thyroxine) 1.27 ng/dL (0.89-1.76); Lipase 95 U/L (12-53); Thyroid Stimulating Hormone 0.83 uIU/mL (0.55-4.78)
[2025-11-01 13:32] LABS: Ferritin 53 ng/mL (10.5-307.3); Iron 159 mcg/dL (65-175); Percent Iron Saturation 53 % (20-55); Total Iron Binding Capacity 295 mcg/dL (250-425); Unsaturated Iron Binding 136 (225-295)
== END | disposition home or self-care (01) ==
LOC: COPL 12:17
PROVIDERS: PCP Specialist; Referring Provider Specialist; Visit Provider Specialist
DX: D50.9 Iron deficiency anemia, unspecified (principal); N30.00 Acute cystitis without hematuria
CPT/HCPCS: 36415; 81001; 82728; 83540; 83550; 83690; 84439; 84443; 85025; 85046; 87086